=== PATIENT | female | born 1955 | race Caucasian/White ===

== ENCOUNTER 2016-02-18 11:57 | Emergency (ER) | payer OTHER ==
[~2016-02-18] VITALS: Ht 154.9 cm; Wt 72.6 kg
[~2016-02-18 11:57] MED LIST: ALDACTONE25 MG PO; ASPI-86 PO; ATEN25TA; ATOR40TA70 PO; ATRV10T; B-12; CANA100T PO; CARV3.12T PO; CHELATED ZINC PO; CITA20TA4 PO; CLOP75TA; D50KC PO; ESCI20TA2; LIOT5TAB3 PO; LISI10TA2 PO; LOVA10TA; LOVA20TA2; LRT10T PO; MAG PO; METF500T8 PO; OMEP20CA12 PO; OMEP20CA6; POTA10CA16; POTA20TA15 PO; RNT150T; TORS20TA2 PO; TPR25T PO
--- OUTSIDE RECORDS SUMMARY | 2016-02-18 12:02 | XMS REPORT | Continuity of Care Document ---
Author Author [facility] Organization [facility] Address Unknown Phone Unavailable Care Team Providers Care Blood Donor Recruiter Name Role Phone Godwin Rojo III PCP [phone] Source Comments Some departments are not documenting in the electronic medical record. If you do not see the information that you expected, contact Release of Information in the Health Information Management department at [phone] for further assistance in locating additional records.[facility] Active Allergies and Adverse Reactions Allergen Noted Date Severity Reactions Comments Erythromycin 08/12/2011 HIVES Current Medications Prescription Sig. Disp. Refills Start End Date Status Date potassium chloride SR Take 10 mEq by mouth Active (K-DUR) 10 mEq tablet daily. torsemide(+) (DEMADEX) 20 Take 20 mg by mouth Active mg tablet daily. citalopram (CELEXA) 20 mg Take 20 mg by mouth Active tablet daily. loratadine (CLARITIN) 10 Take 10 mg by mouth Active mg tablet daily. liothyronine (CYTOMEL) 5 Take 5 mcg by mouth twice Active mcg Tab daily. OMEPRAZOLE PO Take by mouth daily. Active aspirin EC 81 mg tablet Take 81 mg by mouth Active daily. magnesium oxide (MAG-OX) Take 400 mg by mouth Active 400 mg tablet daily. metFORMIN-XR(+) Take 500 mg by mouth Active (GLUCOPHAGE XR) 500 mg daily with dinner. tablet carvedilol (COREG) 3.125 Take 3.125 mg by mouth Active mg tablet twice daily with meals. topiramate (TOPAMAX) 25 Take 25 mg by mouth Active mg tablet daily. ergocalciferol (VITAMIN Take 50,000 Units by Active D-2) 50,000 unit capsule mouth every 7 days. CYANOCOBALAMIN (VITAMIN Inject to area(s) as Active B-12) (VITAMIN B-12 IJ) directed every 30 days. CANAGLIFLOZIN (INVOKANA Take by mouth daily. Active PO) atorvastatin (LIPITOR) 40 Take 40 mg by mouth Active mg tablet daily. metaxalone(+) (SKELAXIN) Take 800 mg by mouth Active 800 mg tablet three times daily. amitriptyline (ELAVIL) 10 Take 10 mg by mouth at Active mg tablet bedtime daily. buPROPion SR(+) Take 150 mg by mouth Active (WELLBUTRIN-SR) 150 mg twice daily. tablet Active Problems Problem Noted Date Meningioma (HCC) 12/11/2011 Overview: 08/27/2011: stereotactic craniotomy for resection of left parietal meningioma. WHO grade I S/P craniotomy 12/11/2011 Seizure (HCC) 12/11/2011 Brain lesion 08/27/2011 Hypertension 08/27/2011 Hyperlipidemia 08/27/2011 CAD (coronary artery disease) 08/27/2011 Hypothyroidism 08/27/2011 Social History Tobacco Use Types Packs/Day Years Used Date Never Smoker Alcohol Use Drinks/Week oz/Week Comments Yes 0.5 Standard 0.0 drinks or equivalent Last Filed Vital Signs Vital Sign Reading Time Taken Blood Pressure 133/84 09/05/2015 10:29 AM CDT Pulse 98 09/05/2015 10:29 AM CDT Temperature 36.9 C (98.4 F) 12/10/2011 11:49 AM CDT Respiratory Rate 20 09/11/2011 6:47 PM CDT Height 1.549 m (5' 1") 09/05/2015 10:29 AM CDT Weight 69.854 kg (154 lb) 09/05/2015 10:29 AM CDT Body Mass Index 29.11 09/05/2015 10:29 AM CDT Oxygen Saturation 96% 08/29/2011 4:00 PM CDT Plan of Care Health Maintenance Due Date Last Done Comments Hepatitis C Screening 1955 Physical (Comprehensive) 09/08/1962 Exam Pertussis Vaccine 09/08/1966 Tetanus Vaccine 09/08/1972 Dilated Eye Exam 09/08/1973 Foot Exam 09/08/1973 Hba1c 09/08/1973 Microalbumin 09/08/1973 Pneumonia Vaccine (Dm) 09/08/1973 Cervical Cancer Screening 09/08/1976 Breast Cancer Screening 1995 Colorectal Cancer 09/08/2005 Screening Influenza Vaccine 10/18/2015 Results from Last 3 Months Not on file
[2016-02-18] MEDS ORDERED: BUPR150T9 PO (12:16)
[2016-02-18] MEDS ORDERED: META800T PO (12:16)
--- NOTE | 2016-02-18 12:28 | ED General ---
General Chief Complaint: Allergic Reaction Stated Complaint: UTI, REACTION TO ANITBIOTIC Nursing Triage Note: STARTED MACROBID ON THURSDAY FOR UTI. STATES SINCE THEN SHE BEGAN FEELING WORSE WITH VOMITING AND REFLUX WITH MEDICATION USE. STATES SHE VOMITED X1 TODAY. Nursing Sepsis Screen: No Definite Risk Source of Information: Patient Exam Limitations: No Limitations History of Present Illness Time Seen by Provider: 12:28 Initial Comments 60 yo female patient presents to the ED with c/o possible reaction to Macrobid. Patient was started on Macrobid on Thursday for UTI. Patient reports n/v and reflux with the medication. Symptoms have progressively gotten worse with each dose of the macrobid. She reportedly contacted the office and was told the medication would make her feel worse before better. Patient reports chronic BAUTISTA since brain surgery. Timing/Duration: 5-6 Days, Getting Worse Modifying Factors: worse with Medication (worse with antibiotic) Allergies and Home Medications Allergies Coded Allergies: erythromycin base (Verified Allergy, Unknown, 03/26/07) Home Medications 1 TAB PO DAILY (Reported) Aspirin 81 Mg Tab.chew 81 MG PO DAILY (Reported) Atorvastatin Calcium 40 Mg Tablet 40 MG PO DAILY (Reported) Bupropion HCl 150 Mg Tablet.er 150 MG PO (Reported) Carvedilol 3.125 Mg Tablet 3.125 MG PO BID (Reported) Citalopram Hydrobromide 20 Mg Tablet 20 MG PO DAILY (Reported) Ergocalciferol 50,000 Units Cap 50,000 UNITS PO WEEKLY ON THURSDAY (Reported) Famotidine 20 Mg Tablet #20 20 MG PO BID Prescribed by: SADI ALVAREZ on 02/18/16 1434 Liothyronine Sodium 5 Mcg Tablet 10 MCG PO BID (Reported) Loratadine 10 Mg Tab 10 MG PO DAILY (Reported) Metaxalone 800 Mg Tablet 800 MG PO (Reported) Metformin Hcl 500 Mg Tab.sr.24h 500 MG PO DAILY WITH MEAL (Reported) Omeprazole 20 Mg Capsule.dr 20 MG PO DAILY (Reported) Ondansetron 8 Mg Tab.rapdis #10 8 MG PO Q6H PRN PRN NAUSEA/VOMITING Prescribed by: SADI ALVAREZ on 02/18/16 1432 Potassium Chloride 20 Meq Tab.prt.sr 20 MEQ PO DAILY (Reported) Potassium Chloride 10 Meq Tablet.er #4 10 MEQ PO BID Prescribed by: SADI ALVAREZ on 02/18/16 1438 Sucralfate 1 Gm/10 Ml Oral.susp #560 1 GM PO ACHS Prescribed by: SADI ALVAREZ on 02/18/16 1615 Topiramate 25 Mg Tab 25 MG PO EVENING (Reported) Torsemide 20 Mg Tablet 20 MG PO DAILY (Reported) Constitutional: No chills, No diaphoresis, No fever, No malaise, other ( fatigue) EENTM: nose congestionNo ear pain, No throat pain, No throat swelling Respiratory: coughNo dyspnea on exertion, No orthopnea, phlegmNo short of breath Cardiovascular: No chest pain, No edema, No palpitations, No syncope Gastrointestinal: see HPI abdominal pain (epigastric)No constipation, No diarrhea, No dysphagia, No hematemesis, heartburn loss of appetiteNo melena, nausea vomiting Genitourinary: no symptoms reported Musculoskeletal: no symptoms reported Skin: no symptoms reported Psychiatric/Neurological: Headache ((chronic)) Pre-Existing Deficit (chronic headache since brain surgery.) All Other Systems Reviewed Negative Unless Noted: Yes (Negative excepted noted.) Past Nltzezu-Elbzkm-Eywdgb Hx Patient Social History Alcohol Use: Denies Use Recreational Drug Use: No Smoking Status: Never a Smoker Recent Foreign Travel: No Contact w/Someone Who Travel: No Recent Infectious Disease Expo: No Recent Hopitalizations: Yes (3 YEARS AGO) Physical Abuse Screen: No Sexual Abuse: No Immunizations Up To Date Date of Influenza Vaccine: Nov 15, 2015 Surgeries HX Surgeries: Yes (KNEE SURGERY, CRANIOTOMY ) Surgeries: Breast, Coronary Stent, Gallbladder, Hysterectomy, Orthopedic Respiratory Hx Respiratory Disorders: No Cardiovascular Hx Cardiac Disorders: No Neurological Hx Neurological Disorders: Yes Neurological Disorders: Brain Tumor, Headaches /Migraines (chronic headache since brain surgery.) Reproductive System Hx Reproductive Disorders: No Sexually Transmitted Disease: No Genitourinary Hx Genitourinary Disorders: No Gastrointestinal Hx Gastrointestinal Disorders: No Musculoskeletal Hx Musculoskeletal Disorders: No Endocrine Hx Endocrine Disorders: Yes Endocrine Disorders: Hypothyroidsim, Diabetes, Non-Insulin dep HEENT HX ENT Disorders: No Cancer Cancer: Skin Psychosocial Hx Psychiatric Problems: Yes Blood Transfusions Hx Blood Disorders: No Reviewed Nursing Assessment Reviewed/Agree w Nursing PMH: Yes Family Medical History Significant Family History: No Pertinent Family Hx Physical Exam Vital Signs Capillary Refill : Less Than 3 Seconds General Appearance: No Apparent Distress WD/WN HEENT: PERRL/EOMI Pharynx Normal Neck: Normal Inspection Supple Respiratory: Lungs Clear Normal Breath Sounds No Respiratory Distress Cardiovascular: No Edema No Murmur Normal Peripheral Pulses Tachycardia Gastrointestinal: Normal Bowel Sounds No Organomegaly SoftNo Distended, Guarding (epigastric)No Rebound, Tenderness (epigastric) Extremity: Normal Capillary Refill No Pedal Edema Neurologic/Psychiatric: Alert Oriented x3 Normal Mood/Affect Skin: Normal Color Warm/Dry Progress/Results/Core Measures Results/Orders Lab Results My Orders Medications Given in ED Vital Signs/I&O Blood Pressure Mean: 111 ECG Initial ECG Impression Date: Feb 18, 2016 Initial ECG Impression Time: 16:40 Initial ECG Rate: 72 Initial ECG Rhythm: Normal Sinus Initial ECG Intervals: Normal Initial ECG Impression: Normal Initial ECG Comparisson: Unchanged Comment Sinus rhythm. No STEMI. EKG reviewed and discussed with Dr. Armstrong. Diagnostic Imaging Diagonstic Imaging: Xray Plain Films/CT/US/NM/MRI: chest Comments FINDINGS: Upright portable view of the chest is obtained. Heart size is normal. The pulmonary vessels appear unremarkable. There is no pneumothorax, mediastinal widening, or pleural fluid demonstrated. The lungs are clear. IMPRESSION: No radiographic evidence of an acute cardiopulmonary process. No significant interval change from the prior study. Dictated on workstation # [id number] Reviewed: Reviewed by Me (radiology report reviewed by me) Departure Communication Progress Notes Patient seen and evaluated. Given 1 L normal saline, morphine, Norflex, and Zofran for symptoms. Patient reported little improvement with medications and was given a GI cocktail. Reported improvement with the GI cocktail. Previous records reviewed showing patient had a stress test on 01/30/[address] Chun which was negative. 04/26/14 patient underwent heart catheterization with stable coronary stent in the LAD with 30-40 percent stenosis beyond the stent. No other obstructive disease noted. 1605 now reporting "chest pain" which radiates across the bilateral lower ribs into the back. Reports symptoms began approximately 10 minutes after morphine was given. proceed with EKG, CXR, and troponin added to labs. 1710 all laboratory findings, diagnostic study findings, and plan for discharge to home discussed with the patient. Patient instructed to follow-up with Dr. Rojo in the next 1-2 days as an outpatient for a recheck and further evaluation. Patient case discussed with Dr. Armstrong, he agrees with the plan of care. Impression Impression: Primary Impression: Nausea & vomiting Qualified Code: R11.2 - Nausea with vomiting, unspecified Additional Impressions: Viral upper respiratory illness Gastritis Qualified Code: K29.00 - Acute gastritis without bleeding Hypokalemia, gastrointestinal losses Disposition: HOME, SELF-CARE Condition: Improved Departure-Patient Inst. Decision time for Depature: 17:10 Referrals: DAVIDA ROJO DO (PCP/Family) Primary Care Physician Patient Instructions: Nausea and Vomiting, Adult (DC), Ulcer and Gastritis Diet , Viral Upper Respiratory Infection, Adult (DC) Add. Discharge Instructions: All discharge instructions reviewed with patient and/or family. Voiced understanding. Medications as instructed. Tylenol Extra Strength over-the- counter as directed for pain or headache. Omeprazole 40 mg by mouth daily over- the-counter. Do not eat within 2 hours of lying down. No spicy foods, fatty foods, carbonated beverages, caffeinated beverages, Motrin, Aleve, or aspirin. Drink plenty of fluids. Warm salt water gargles as needed for throat pain. Follow-up with Dr. Rojo as an outpatient in the next 1-2 days for recheck. Call for appointment time. Return to the emergency department for worsened symptoms or any other concerns. Scripts Sucralfate (Carafate)1 Gm/10 Ml Oral.susp1 Gm PO ACHS #560 ML Ref 0 Prov:SADI ALVAREZ 02/18/16 Potassium Chloride 10 Meq Tablet.er10 Meq PO BID #4 TAB Ref 0 Prov:SADI ALVAREZ 02/18/16 Famotidine (Pepcid)20 Mg Xwauhh47 Mg PO BID #20 TAB Ref 0 Prov:SADI ALVAREZ 02/18/16 Ondansetron (Ondansetron Odt)8 Mg Tab.rapdis8 Mg PO Q6H PRN NAUSEA/VOMITING #10 TAB Ref 0 Prov:SADI ALVAREZ 02/18/16 Work/School Note: Work Release Form Date Seen in the Emergency Department: Feb 18, 2016 Return to Work: Feb 20, 2016 Restrictions: No Restrictions SADI ALVAREZ Feb 18, 2016 12:28 Red Cell Distribution Width 12.8 10.0-14.5 % White Blood Count 9.4 4.3-11.0 10^3/uL Alanine Aminotransferase (ALT/SGPT) 14 0-55 U/L Albumin 4.2 3.2-4.5 G/DL Alkaline Phosphatase 94 40-136 U/L Anion Gap 12 5-14 MMOL/L Aspartate Amino Transf (AST/SGOT) 15 5-34 U/L BUN/Creatinine Ratio 19 Blood Urea Nitrogen 16 7-18 MG/DL Calcium Level 9.2 8.5-10.1 MG/DL Carbon Dioxide Level 25 21-32 MMOL/L Chloride Level 108 H 98-107 MMOL/L Creatinine 0.84 0.60-1.30 MG/DL Estimat Glomerular Filtration Rate > 60 Glucose Level 134 H 70-105 MG/DL Lipase 33 8-78 U/L Potassium Level 3.3 L 3.6-5.0 MMOL/L Sodium Level 145 135-145 MMOL/L Total Bilirubin 0.5 0.1-1.0 MG/DL Total Protein 7.6 6.4-8.2 G/DL Troponin I < 0.30 <0.30 NG/ML Group A Streptococcus Screen NEGATIVE NEGATIVE [place]-SADI ALVAREZ Cbc With Automated Diff (02/18/16 13:05) Comprehensive Metabolic Panel (02/18/16 13:05) Lipase (02/18/16 13:05) Monotest (02/18/16 13:05) Rapid Strep A Screen (02/18/16 13:05) Ua Culture If Indicated (02/18/16 13:05) Saline Lock/Iv-Start (02/18/16 13:05) Ketorolac Injection (Toradol Injection) (02/18/16 13:05) Ondansetron Injection (Zofran Injectio (02/18/16 13:15) Ns Iv 1000 Ml (Sodium Chloride 0.9%) (02/18/16 13:05) Famotidine Injection (Pepcid Injection) (02/18/16 13:05) Ondansetron Injection (Zofran Injectio (02/18/16 15:30) Morphine Injection (Morphine Injection (02/18/16 15:17) Orphenadrine Injection (Norflex Injectio (02/18/16 15:17) Lidocaine 2% Viscous 15 Ml (Xylocaine Vi (02/18/16 16:15) Antacid Suspension (Mylanta Suspension (02/18/16 16:15) Ekg Tracing (02/18/16 16:13) Troponin I (02/18/16 16:13) Chest 1 View, Ap/Pa Only (02/18/16 16:13) Medications Given in ED Current Medications Medications Dose Ordered Sig/Leonor Route Start Time Stop Time Status Last Admin Dose Admin Al Hydrox/Mg Hydrox/Simethicone 30 ml ONCE ONCE PO 02/18/16 16:15 02/18/16 16:16 DC 02/18/16 16:26 30 ML Lidocaine HCl 15 ml ONCE ONCE PO 02/18/16 16:15 02/18/16 16:16 DC 02/18/16 16:27 15 ML Ondansetron HCl 4 mg ONCE ONCE IVP 02/18/16 15:30 02/18/16 15:31 DC 02/18/16 15:27 4 MG Ondansetron HCl 4 mg 4 mg ONCE ONCE IVP 02/18/16 13:15 02/18/16 13:16 DC 02/18/16 14:20 4 MG Sodium Chloride 1,000 ml @ 0 mls/hr Q0M ONCE IV 02/18/16 13:05 02/18/16 13:08 DC 02/18/16 14:20 1,000 MLS/HR Vital Signs/I&O Vital Sign - Last 12Hours 02/18/16 12:03 Temp 99.6 Pulse 106 Resp 18 B/P 126/103 Pulse Ox 98 Blood Pressure Mean: 111 Diagnostic Imaging Diagonstic Imaging: Xray Plain Films/CT/US/NM/MRI: chest Comments FINDINGS: Upright portable view of the chest is obtained. Heart size is normal. The pulmonary vessels appear unremarkable. There is no pneumothorax, mediastinal widening, or pleural fluid demonstrated. The lungs are clear. IMPRESSION: No radiographic evidence of an acute cardiopulmonary process. No significant interval change from the prior study. Dictated on workstation # [id number] Reviewed: Reviewed by Me (radiology report reviewed by me) Departure Communication Progress Notes 1605 now reporting "chest pain" which radiates across the bilateral lower ribs into the back. Reports symptoms began approximately 10 minutes after morphine was given. Impression Impression: Primary Impression: Nausea & vomiting Qualified Code: R11.2 - Nausea with vomiting, unspecified Additional Impressions: Viral upper respiratory illness Gastritis Qualified Code: K29.00 - Acute gastritis without bleeding Hypokalemia, gastrointestinal losses Disposition: 01 HOME, SELF-CARE Condition: Improved Departure-Patient Inst. Decision time for Depature: 14:31 Referrals: DAVIDA ROJO DO (PCP/Family) Primary Care Physician Patient Instructions: Nausea and Vomiting, Adult (DC), Ulcer and Gastritis Diet , Viral Upper Respiratory Infection, Adult (DC) Add. Discharge Instructions: All discharge instructions reviewed with patient and/or family. Voiced understanding. Medications as instructed. Tylenol Extra Strength over-the- counter as directed for pain or headache. Omeprazole 40 mg by mouth daily over- the-counter. Do not eat within 2 hours of lying down. No spicy foods, fatty foods, carbonated beverages, caffeinated beverages, Motrin, Aleve, or aspirin. Drink plenty of fluids. Warm salt water gargles as needed for throat pain. Follow-up with Dr. Rojo as an outpatient in the next 1-2 days for recheck. Call for appointment time. Return to the emergency department for worsened symptoms or any other concerns. Scripts Sucralfate (Carafate)1 Gm/10 Ml Oral.susp1 Gm PO ACHS #560 ML Ref 0 Prov:SADI ALVAREZ 02/18/16 Potassium Chloride 10 Meq Tablet.er10 Meq PO BID #4 TAB Ref 0 Prov:SADI ALVAREZ 02/18/16 Famotidine (Pepcid)20 Mg Pwwskr68 Mg PO BID #20 TAB Ref 0 Prov:SADI ALVAREZ 02/18/16 Ondansetron (Ondansetron Odt)8 Mg Tab.rapdis8 Mg PO Q6H PRN NAUSEA/VOMITING #10 TAB Ref 0 Prov:SADI ALVAREZ 02/18/16 Work/School Note: Work Release Form Date Seen in the Emergency Department: Feb 18, 2016 Return to Work: Feb 20, 2016 Restrictions: No Restrictions SADI ALVAREZ Feb 18, 2016 12:28
[2016-02-18] MEDS ORDERED: NS IV 1000 ML 1,000 ML IV ONE (13:05)
[2016-02-18] MEDS ORDERED: KETOROLAC 30 MG/ML VIAL IVP STA (13:05)
[2016-02-18] MEDS ORDERED: FAMOTIDINE 20MG/2ML IV (PEPCID) IV STA (13:05)
[2016-02-18] MEDS ORDERED: ONDANSETRON 4 MG/2 ML (SDV) Z0FRAN IVP ONE ×2 (13:15→15:30)
[2016-02-18 13:34] LABS: BILIRUBIN,URINE NEGATIVE (NEGATIVE); KETONES,URINE NEGATIVE (NEGATIVE); LEUKOCYTE ESTERASE ,URINE NEGATIVE (NEGATIVE); NITRITE,URINE NEGATIVE (NEGATIVE); PH,URINE 5 (5-9); PROTEIN,URINE NEGATIVE (NEGATIVE); UROBILINOGEN,URINE NORMAL (NORMAL)
[2016-02-18 13:36] LABS: BASOPHILS % (AUTO) 0 % (0-10); EOSINOPHILS # (AUTO) 0.1 10^3/uL (0.0-0.3); EOSINOPHILS % (AUTO) 1 % (0-10); LYMPHOCYTES # (AUTO) 1.7 X 10^3 (1.0-4.0); LYMPHOCYTES % (AUTO) 18 % (12-44); MEAN CORPUSCULAR HEMOGLOBIN 29 PG (25-34); MEAN CORPUSCULAR HGB CONC 34 G/DL (32-36); MEAN CORPUSCULAR VOLUME 87 FL (80-99); MEAN PLATELET VOLUME 10.4 FL (7.4-10.4); MONOCYTES # (AUTO) 0.7 X 10^3 (0.0-1.0); MONOCYTES % (AUTO) 7 % (0-12); NEUTROPHILS # (AUTO) 6.9 X 10^3 (1.8-7.8); NEUTROPHILS % (AUTO) 73 % (42-75); PLATELET COUNT 360 10^3/uL (130-400); RED BLOOD COUNT 4.97 10^6/uL (4.35-5.85); RED CELL DISTRIBUTION WIDTH 12.8 % (10.0-14.5); WHITE BLOOD COUNT 9.4 10^3/uL (4.3-11.0)
[2016-02-18 14:19] LABS: ALANINE AMINOTRANSFERASE 14 U/L (0-55); ALBUMIN 4.2 G/DL (3.2-4.5); ANION GAP 12 MMOL/L (5-14); ASPARTATE AMINO TRANSFERASE 15 U/L (5-34); BILIRUBIN,TOTAL 0.5 MG/DL (0.1-1.0); BLOOD UREA NITROGEN 16 MG/DL (7-18); BUN/CREATININE RATIO 19; CALCIUM 9.2 MG/DL (8.5-10.1); CARBON DIOXIDE 25 MMOL/L (21-32); CHLORIDE 108 MMOL/L (98-107); CREATININE SERUM 0.84 MG/DL (0.60-1.30); GFR ESTIMATED > 60; GLUCOSE 134 MG/DL (70-105); LIPASE 33 U/L (8-78); POTASSIUM 3.3 MMOL/L (3.6-5.0); SODIUM 145 MMOL/L (135-145); TOTAL PROTEIN 7.6 G/DL (6.4-8.2)
[2016-02-18] MEDS ORDERED: ONDA8TAB13 PO (14:32)
[2016-02-18] MEDS ORDERED: FAMO-119 PO (14:34)
[2016-02-18] MEDS ORDERED: POTA10TA10 PO (14:38)
[2016-02-18] MEDS ORDERED: ORPHENADRINE 60 MG/2 ML (NORFLEX) AMP IV STA (15:17)
[2016-02-18] MEDS ORDERED: morphine INJ 10 MG/ML 1ML (SYR OR VIAL) IVP STA (15:17)
[2016-02-18] MEDS ORDERED: ANTACID SUSP 30 ML UDC (MYLANTA) PO ONE (16:15)
[2016-02-18] MEDS ORDERED: SUCR1ORA5 PO (16:15)
[2016-02-18] MEDS ORDERED: LIDOCAINE 2% VISCOUS 15 ML UDC PO ONE (16:15)
--- NOTE | 2016-02-18 17:05 | Diagnostic Imaging Report ---
INDICATION: Chest pain. COMPARISON: 04/26/2014. FINDINGS: Upright portable view of the chest is obtained. Heart size is normal. The pulmonary vessels appear unremarkable. There is no pneumothorax, mediastinal widening, or pleural fluid demonstrated. The lungs are clear. IMPRESSION: No radiographic evidence of an acute cardiopulmonary process. No significant interval change from the prior study. Dictated by: Dictated on workstation # [id number]
[2016-02-18 17:19] VITALS: BP 137/85
== END 2016-02-18 17:19 | disposition home or self-care (01) ==
LOC: EDUNIT# 11:57 → ER 11:59
DX: R11.2 Nausea with vomiting, unspecified (principal); J06.9 Acute upper respiratory infection, unspecified; E03.9 Hypothyroidism, unspecified; E87.6 Hypokalemia; I10 Essential (primary) hypertension; E11.9 Type 2 diabetes mellitus without complications; Z79.84 Long term (current) use of oral hypoglycemic drugs; Z79.82 Long term (current) use of aspirin; Z79.899 Other long term (current) drug therapy
CPT/HCPCS: 36415; 71010; 80053; 81000; 83690; 84484; 85025; 86308; 87430; 93005; 96374; 96375; 96376

== ENCOUNTER → 2016-04-29 | Outpatient (CLI) | payer OTHER ==
[~2016-04-29] MED LIST changes: +BUPIVACAINE 0.5% 30 ML (SENSORCAINE) VIAL ONE; +BUPR150T9 PO; +CHOL500049 PO; +FAMO-119 PO; +LIDOCAINE 1% INJ 20 ML (XYLOCAINE) VIAL ONE; +META800T PO; +ONDA8TAB13 PO; +POTA10TA10 PO; +SUCR1ORA5 PO
--- OUTSIDE RECORDS SUMMARY | 2016-04-29 08:31 | XMS REPORT | Continuity of Care Document ---
Author Author [facility] Organization [facility] Address Unknown Phone Unavailable Care Team Providers Care Athletic Equipment Custodian Name Role Phone Godwin Rojo III PCP [phone] Source Comments Some departments are not documenting in the electronic medical record. If you do not see the information that you expected, contact Release of Information in the Health Information Management department at [phone] for further assistance in locating additional records.[facility] Active Allergies and Adverse Reactions Allergen [...]
--- NOTE | 2016-04-29 20:24 | Diagnostic Imaging Report ---
Bilateral diagnostic mammogram. INDICATION: Bilateral nodules. Right breast painful superficial nodule. The current study was also evaluated with a Computer Aided Detection (CAD) system. COMPARISON: 08/15/11. FINDINGS: The breasts are composed of scattered fibroglandular densities. Benign-appearing calcifications are seen. No mass or suspicious insufficiency. There is mild architectural distortion in the left breast that would correlate with provided history of prior left breast surgical biopsy. Allowing for technique and positional differences, no suspicious change is seen. IMPRESSION: No significant change. Ultrasound is pending. ACR BI-RADS 0. Dictated by: Dictated on workstation # [id number]
--- NOTE | 2016-04-29 21:10 | Diagnostic Imaging Report ---
EXAM: Bilateral breast ultrasound. INDICATION: Tender lump in the right breast and bilateral lumpiness in the breast tissue. The four-quadrants and retroareolar regions of each breast was scanned. FINDINGS: The area of tender lump at 11 o'clock, 2 cm from the nipple on the right side demonstrates underlying lesion. The left breast demonstrates a calcification that appears to be benign dystrophic type, probably related to prior surgical biopsy at 11:00 o'clock, 8 cm in the left breast. No suspicious lesion seen otherwise. IMPRESSION: No suspicious abnormality. Clinical followup of the palpable lump recommended. BI-RADS 2. ACR BI-RADS Category 2: Benign findings. Result letter will be mailed to the patient. Note: At least 10% of breast cancer is not imaged by mammography. Dictated by: Dictated on workstation # [id number]
== END ==
LOC: RAD 08:26
PROVIDERS: ATTEND Nurse Practitioner Family
DX: N60.01 Solitary cyst of right breast (principal); N60.02 Solitary cyst of left breast
CPT/HCPCS: 77066

== ENCOUNTER 2016-06-23 08:57 | Outpatient (CLI) | payer OTHER ==
[~2016-06-23] VITALS: Ht 154.9 cm; Wt 73.5 kg
[~2016-06-23 08:57] MED LIST changes: -BUPIVACAINE 0.5% 30 ML (SENSORCAINE) VIAL ONE; -CHOL500049 PO; -LIDOCAINE 1% INJ 20 ML (XYLOCAINE) VIAL ONE
[2016-06-23] MEDS ORDERED: CANA100T PO (09:14)
[2016-06-23] MEDS ORDERED: CHOL500049 PO (09:14)
[2016-06-23 09:20] VITALS: BP 135/86
== END 2016-06-23 09:37 | disposition home or self-care (01) ==
LOC: PREOP 08:57
PROVIDERS: ATTEND Surgery
DX: Z01.818 Encounter for other preprocedural examination (principal); Z11.2 Encounter for screening for other bacterial diseases; L98.9 Disorder of the skin and subcutaneous tissue, unspecified
CPT/HCPCS: 87081

== ENCOUNTER 2016-06-26 07:18 | Day surgery (SDC) | payer OTHER ==
[~2016-06-26] VITALS: Ht 154.9 cm; Wt 73.5 kg
[~2016-06-26 07:18] MED LIST changes: +CHOL500049 PO
[2016-06-26] MEDS ORDERED: LACTATED RINGERS 1,000 ML IV PRN (07:37)
[2016-06-26] MEDS ORDERED: SEVOFLURANE (ULTANE) 15 ML INHAL SOLN ONE ×3 (07:41→09:49)
[2016-06-26] MEDS ORDERED: DEXAMETHASONE PF 10 MG/ML (DECADRON) VIAL ONE (07:41)
[2016-06-26] MEDS ORDERED: proPOfol 200 MG/20 ML (DIPRIVAN) VIAL IV ONE (07:41)
[2016-06-26] MEDS ORDERED: MIDAZOLAM 2 MG/2 ML (VERSED) VIAL ONE (07:41)
[2016-06-26] MEDS ORDERED: LACTATED RINGERS 1,000 ML IV ONE ×2 (07:41→09:30)
[2016-06-26] MEDS ORDERED: ONDANSETRON 4 MG/2 ML (SDV) Z0FRAN ONE (07:41)
[2016-06-26] MEDS ORDERED: LIDOCAINE PF 2% 10 ML (XYLOCAINE) AMP ONE (07:41)
[2016-06-26] MEDS ORDERED: fentaNYL INJECTION 100 MCG/2 ML AMP ONE (07:41)
[2016-06-26] MEDS ORDERED: MIDAZOLAM 2 MG/2 ML (VERSED) VIAL IV ONE (07:45)
[2016-06-26] MEDS ORDERED: ceFAZolin 1 GM/NS 50 ML IVPB IV ONE ×2 (07:45)
[2016-06-26] MEDS ORDERED: FAMOTIDINE 20MG/2ML IV (PEPCID) IV ONE (07:45)
--- NOTE | 2016-06-26 08:24 | Progress Note-Pre Operative ---
Pre-Operative Progress Note H&P Reviewed The H&P was reviewed, patient examined and no changes noted. Date H&P Reviewed: June 26, 2016 Time H&P Reviewed: 08:24 Pre-Operative Diagnosis: multiple skin lesions ISABELL ROSA DO June 26, 2016 8:24 am
[2016-06-26 08:31] VITALS: BP 149/92
--- NOTE | 2016-06-26 10:06 | Progress Note-Post Operative ---
Post-Operative Progess Note Surgeon (s)/Pmp (s) Surgeon ISABELL ROSA DO Pmp: Glynn nwagwu Pre-Operative Diagnosis multiple skin lesions Post-Operative Diagnosis same Procedure & Operative Findings Date of Procedure 06/26/16 Procedure Preformed/Findings excision of skin lesions x 10 see dictation for full description Anesthesia Type general Estimated Blood Loss Estimated blood loss (mL): minimal Specimens/Packing Specimens Removed skin lesions see full dictation Packing: none ISABELL ROSA DO June 26, 2016 10:06 am
[2016-06-26] MEDS ORDERED: ONDANSETRON 4 MG/2 ML (SDV) Z0FRAN IVP PRN (10:15)
[2016-06-26] MEDS ORDERED: morphine INJ 10 MG/ML 1ML (SYR OR VIAL) IVP PRN (10:15)
--- NOTE | 2016-06-26 10:41 | OPERATIVE REPORT ---
DATE OF SERVICE: 06/26/2016 PREOPERATIVE DIAGNOSIS: Skin lesions. POSTOPERATIVE DIAGNOSIS: Skin lesions. PROCEDURE: Excision of skin lesions: 1. Right anterior thigh 1.5 x 0.6 cm. 2. Right hip 2.2 x 1.1 cm. 3. Left breast 0.8 x 1.5 cm. 4. Right axilla skin tag. 5. Right neck 1.5 x 1.0 cm. 6. Left axilla skin tag. 7. Right arm 5 mm. 8. Left arm 2.4 x 1.5 cm. 9. Right lower back 1.8 x 1.0 cm. 10. Left lower back 2.0 x 1.0 cm. SURGEON: Isabell Markham DO ANESTHESIA: General. ESTIMATED BLOOD LOSS: Minimal. COMPLICATIONS: None. INDICATIONS: The patient is a 60-year-old female with multiple skin lesions that have changed and is concerned. She has history of skin cancer. She understands risks and benefits of procedure and wished to proceed with procedure. Consent was signed and in the chart. PROCEDURE: The patient was taken to the operating suite, she was prepped and draped in sterile fashion on the lesions. Local anesthetic of 0.5% Marcaine and 1% lidocaine was infiltrated in the skin lesions. A #15 blade scalpel was used to make an elliptical incision around the skin lesions and taking skin and subcutaneous tissue. Skin was then closed using nylon suture. The area was then washed and dried, sterile bandages applied. The skin lesions #1, 2, 3, 5, 8, 9 and 10 were all performed in the same fashion. The skin tags #4 and #6. The lesion was grasped and elevated. A 15 blade scalpel was used to amputate it at the base and then cautery was used to fulgurate. Lesion #7 the area was prepped and draped. The lesion was excised completely with a 5 mm punch, which was taken down through the skin and subcutaneous tissue, grasped, elevated and scissors were used to amputate the subcutaneous tissue. Nylon suture was then used in a simple interrupted fashion to close. The area was washed and dried, sterile bandages were applied. The patient tolerated the procedure well without any complications. She was taken to the recovery room in stable condition. Job ID: [id number] DocumentID: [id number] Dictated Date: 06/26/2016 10:14:36 Film And Video Editor Date: 06/26/2016 10:40:49 Dictated By: ISABELL MARKHAM DO
[2016-06-26 10:55] VITALS: BP 140/102
[2016-06-26 11:25] VITALS: BP 169/93
[2016-06-26 11:55] VITALS: BP 130/70
--- NOTE | 2016-06-26 11:58 | Discharge Inst-Simple/Standard ---
Discharge Inst-Standard Patient Instructions/Follow Up Plan of Care/Instructions/FU: Follow up in clinic in 10 days for suture removal. Keep the wounds clean and dry. Hold ASpirin for 3 days. Activity as Tolerated: No Discharge Diet: No Restrictions Other Inst to Patient Follow up Appt: Make appointment for 10 days for suture removal Instructions: No lifting greater than 10 pounds. No strenuous activity. May shower in 24 hours, no tub bath or soaking. Use incentive spirometer at home as directed. No Smoking Skin/Wound Care: May remove bandages. Symptoms to Report: Appetite Changes, Extremity Discoloration, Numbness/Tingling, Swelling Increased , Bleeding Excessive, Eyesight Changes, Pain Increased, Urine Color Change, Constipation(Persistent), Fever over 101 degree F, Pain/Pressure in chest, Urinating Difficulty, Cough Up/Vomit Blood, Heart Beat Irreg/Pounding, Pain/ Pressure in jaw, Vaginal Bleeding Increase, Cramps in feet or legs, Lightheadedness, Pain/Pressure in shoulder, Diarrhea(Persistent), Memory Changes Suddenly, Questions/Concerns, Weight gain consecutive days, Dizziness/ Fainting, Nausea/Vomiting, Shortness of Breath, Weight gain over 2 pounds If questions or concerns contact your physician Or seek help at emergency department. LANDEN SCHWARTZ APRN June 26, 2016 11:58
[2016-06-26 12:15] VITALS: BP 130/70
== END 2016-06-26 12:15 | disposition home or self-care (01) ==
LOC: SDC 07:18
PROVIDERS: ATTEND Surgery
DX: C44.712 Basal cell carcinoma of skin of right lower limb, including hip (principal); C44.41 Basal cell carcinoma of skin of scalp and neck; C44.612 Basal cell carcinoma of skin of right upper limb, including shoulder; C44.619 Basal cell carcinoma of skin of left upper limb, including shoulder; D23.5 Other benign neoplasm of skin of trunk; L82.1 Other seborrheic keratosis; L91.8 Other hypertrophic disorders of the skin; I25.10 Atherosclerotic heart disease of native coronary artery without angina pectoris; E11.9 Type 2 diabetes mellitus without complications; I10 Essential (primary) hypertension; E78.5 Hyperlipidemia, unspecified; G47.33 Obstructive sleep apnea (adult) (pediatric); G40.909 Epilepsy, unspecified, not intractable, without status epilepticus; Z79.899 Other long term (current) drug therapy
CPT/HCPCS: 82962; 88305

== ENCOUNTER → 2016-08-08 | Outpatient (CLI) | payer OTHER ==
[2016-08-08 09:31] LABS: BASOPHILS % (AUTO) 1 % (0-10); EOSINOPHILS # (AUTO) 0.1 10^3/uL (0.0-0.3); EOSINOPHILS % (AUTO) 2 % (0-10); LYMPHOCYTES % (AUTO) 31 % (12-44); MEAN CORPUSCULAR HEMOGLOBIN 29 PG (25-34); MEAN CORPUSCULAR HGB CONC 32 G/DL (32-36); MEAN CORPUSCULAR VOLUME 90 FL (80-99); MEAN PLATELET VOLUME 9.4 FL (7.4-10.4); MONOCYTES # (AUTO) 0.5 X 10^3 (0.0-1.0); MONOCYTES % (AUTO) 8 % (0-12); NEUTROPHILS # (AUTO) 3.9 X 10^3 (1.8-7.8); NEUTROPHILS % (AUTO) 59 % (42-75); PLATELET COUNT 297 10^3/uL (130-400); RED BLOOD COUNT 4.79 10^6/uL (4.35-5.85); RED CELL DISTRIBUTION WIDTH 13.4 % (10.0-14.5); WHITE BLOOD COUNT 6.6 10^3/uL (4.3-11.0)
[2016-08-08 09:49] LABS: ALANINE AMINOTRANSFERASE 25 U/L (0-55); ANION GAP 13 MMOL/L (5-14); ASPARTATE AMINO TRANSFERASE 18 U/L (5-34); BILIRUBIN,TOTAL 0.4 MG/DL (0.1-1.0); BLOOD UREA NITROGEN 21 MG/DL (7-18); BUN/CREATININE RATIO 27 (0-20); CALCIUM 9.5 MG/DL (8.5-10.1); CARBON DIOXIDE 21 MMOL/L (21-32); CHLORIDE 108 MMOL/L (98-107); CHOLESTEROL 217 MG/DL (< 200); CREATININE SERUM 0.78 MG/DL (0.60-1.30); DIRECT LDL 125 MG/DL (1-129); GFR ESTIMATED > 60; GLUCOSE 106 MG/DL (70-105); HEMOLYSIS 11 (-100-29); ICTERUS 0.7 (-100-1.9); LIPEMIA 14 (-100-49); MAGNESIUM 2.5 MG/DL (1.8-2.4); POTASSIUM 4.1 MMOL/L (3.6-5.0); SODIUM 142 MMOL/L (135-145); TOTAL PROTEIN 7.3 GM/DL (6.4-8.2); TRIGLYCERIDES 151 MG/DL (<150); VLDL CHOLESTEROL 30 MG/DL (5-40); hs C REACTIVE PROTEIN 0.32 MG/DL (0.00-0.50)
[2016-08-08 10:22] LABS: THYROID STIMULATING HORMONE 0.39 UIU/ML (0.35-4.94)
[2016-08-09 07:24] LABS: VITAMIN D 25-HYDROXY (TOTAL) 45 ng/mL (30-100)
== END ==
LOC: LAB 09:12
PROVIDERS: ATTEND Nurse Practitioner Family
DX: R51 Headache (principal); N39.0 Urinary tract infection, site not specified; R73.03 Prediabetes; I10 Essential (primary) hypertension; E53.8 Deficiency of other specified B group vitamins; E61.2 Magnesium deficiency; E78.5 Hyperlipidemia, unspecified
CPT/HCPCS: 36415; 80053; 80061; 82306; 83735; 84439; 84443; 84480; 85025; 86038; 86039; 86141

== ENCOUNTER → 2016-09-17 | Outpatient (CLI) | payer OTHER ==
[2016-09-18 07:30] LABS: C3 COMPLEMENT SERUM 151 mg/dL (73-183); C4 COMPLEMENT SERUM 39 mg/dL (15-59)
[2016-09-18 12:55] LABS: ANTI THYROID MICROSOMAL ABY 4.17 Units (0.00-100.00)
[2016-09-18 19:46] LABS: ANTI RIBONUCLEAR PROTEIN <20 Units (0-19); SJOGRENS SSA ANTIBODIES <20 Units (0-19); SJOGRENS SSB ANTIBODIES <20 Units (0-19); SSA INTP Negative (Negative); SSB INTP Negative (Negative)
[2016-09-19 06:34] LABS: ANTI RNP INTERP Negative (Negative)
[2016-09-19 06:46] LABS: SCLERODERMA ANTIBODY <20 UNITS (0-19)
[2016-09-19 06:47] LABS: SCL 70 INTERP Negative (Negative)
[2016-09-19 06:48] LABS: ANTI SMITH ANTIBODY <20 UNITS (0-19)
[2016-09-19 06:49] LABS: SMITH AB INTP Negative (Negative)
== END ==
LOC: LAB 15:30
PROVIDERS: ATTEND Internal Medicine Rheumatology
DX: R76.8 Other specified abnormal immunological findings in serum (principal)
CPT/HCPCS: 36415; 86038; 86039; 86160; 86235; 86376

== ENCOUNTER → 2016-12-18 | Outpatient (CLI) | payer OTHER ==
[2016-12-18 10:36] LABS: BILIRUBIN,URINE NEGATIVE (NEGATIVE); KETONES,URINE NEGATIVE (NEGATIVE); LEUKOCYTE ESTERASE ,URINE NEGATIVE (NEGATIVE); NITRITE,URINE NEGATIVE (NEGATIVE); PH,URINE 5 (5-9); PROTEIN,URINE NEGATIVE (NEGATIVE); UROBILINOGEN,URINE NORMAL (NORMAL)
[2016-12-18 10:43] LABS: BASOPHILS % (AUTO) 1 % (0-10); EOSINOPHILS # (AUTO) 0.1 10^3/uL (0.0-0.3); EOSINOPHILS % (AUTO) 2 % (0-10); LYMPHOCYTES # (AUTO) 1.8 X 10^3 (1.0-4.0); LYMPHOCYTES % (AUTO) 36 % (12-44); MEAN CORPUSCULAR HEMOGLOBIN 29 PG (25-34); MEAN CORPUSCULAR HGB CONC 33 G/DL (32-36); MEAN CORPUSCULAR VOLUME 89 FL (80-99); MEAN PLATELET VOLUME 9.9 FL (7.4-10.4); MONOCYTES # (AUTO) 0.3 X 10^3 (0.0-1.0); MONOCYTES % (AUTO) 6 % (0-12); NEUTROPHILS # (AUTO) 2.8 X 10^3 (1.8-7.8); NEUTROPHILS % (AUTO) 55 % (42-75); PLATELET COUNT 294 10^3/uL (130-400); RED BLOOD COUNT 4.41 10^6/uL (4.35-5.85); RED CELL DISTRIBUTION WIDTH 12.5 % (10.0-14.5)
[2016-12-18 11:52] LABS: ALANINE AMINOTRANSFERASE 23 U/L (0-55); ALBUMIN 4.2 GM/DL (3.2-4.5); ANION GAP 10 MMOL/L (5-14); ASPARTATE AMINO TRANSFERASE 21 U/L (5-34); BILIRUBIN,TOTAL 0.6 MG/DL (0.1-1.0); BLOOD UREA NITROGEN 18 MG/DL (7-18); BUN/CREATININE RATIO 23; CALCIUM 9.1 MG/DL (8.5-10.1); CARBON DIOXIDE 22 MMOL/L (21-32); CHLORIDE 109 MMOL/L (98-107); CHOLESTEROL 192 MG/DL (< 200); DIRECT LDL 112 MG/DL (1-129); GFR ESTIMATED > 60; GLUCOSE 94 MG/DL (70-105); MAGNESIUM 2.2 MG/DL (1.8-2.4); SODIUM 141 MMOL/L (135-145); TOTAL PROTEIN 7.2 GM/DL (6.4-8.2); TRIGLYCERIDES 86 MG/DL (<150); URIC ACID 4.7 MG/DL (2.6-7.2); VLDL CHOLESTEROL 17 MG/DL (5-40)
[2016-12-18 12:13] LABS: THYROID STIMULATING HORMONE 2.59 UIU/ML (0.35-4.94)
[2016-12-19 05:40] LABS: EBV EA AB INT Positive (Negative); EBV VCA IGG INT Positive (Negative); LYME AB G M 0.04 Index (0.00-0.89)
[2016-12-19 06:42] LABS: VITAMIN D 25-HYDROXY (TOTAL) 54 ng/mL (30-100)
[2016-12-19 06:46] LABS: LYME AB INTERP Negative (Negative)
[2016-12-19 06:47] LABS: EBV NUC IGG INT Positive (Negative); EPSTEIN BARR EARLY ANTIGEN 26.1 U/mL (0.0-8.9); TULAREMIA ANTIBODY <1:20
== END ==
LOC: LAB 09:32
PROVIDERS: ATTEND Nurse Practitioner Family
DX: R51 Headache (principal); D64.9 Anemia, unspecified; R53.83 Other fatigue
CPT/HCPCS: 36415; 80053; 80061; 81000; 82306; 82525; 83540; 83735; 84439; 84443; 84480; 84550; 84590; 84630; 85025; 86038; 86611; 86618; 86663; 86664; 86665; 86666; 86668; 86757

== ENCOUNTER 2016-12-30 20:31 | Emergency (ER) | payer OTHER ==
[~2016-12-30] VITALS: Ht 154.9 cm; Wt 74.4 kg
[2016-12-30] MEDS ORDERED: PENI500T PO (21:41)
[2016-12-30] MEDS ORDERED: ONDN4T PO (21:41)
[2016-12-30] MEDS ORDERED: ACET-2267 PO (21:42)
[2016-12-30] MEDS ORDERED: NF-SKEL800 PO (21:42)
[2016-12-30] MEDS ORDERED: KETOROLAC 30 MG/ML VIAL IVP ONE (21:45)
--- NOTE | 2016-12-30 21:48 | ED Back Pain ---
General Chief Complaint: Back Problems Stated Complaint: BACK PAIN Nursing Triage Note: pt c/o back pain below left shoulder pain starting this afternoon. muscle spasms this evening. Nursing Sepsis Screen: No Definite Risk Source of Information: Patient, Spouse Exam Limitations: No Limitations History of Present Illness Time Seen by Provider: 21:35 Initial Comments Patient presents to ER by private conveyance with her significant other and a chief complaint that this afternoon she experienced a excruciating pain under her left shoulder blade that she associated with her back. She has a history of low back pain but never anything like this for. It came on relatively quickly was severe and her was rubbing her back which helped and he said he could feel a knot but after he started massaging it for some time pain became excruciating worse than childbirth. She took Skelaxin and this did not improve her pain at all. She also took Tylenol with no improvement. She has no dysuria, shortness of breath for the past 2-3 days she's had a nonproductive cough. She is a no fevers or chills. 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 5 days ago she was started on penicillin 500 mg 3 times a day. She's had no nausea, vomiting, diarrhea, constipation. She has no coronary artery history. She does not smoke. She has no dysuria or hematuria and no history of kidney stones. Incidentally she has had a stent was not on a blood thinners anymore. She had a meningioma over a year ago removed and has some residual right arm weakness but this has not changed in the last few days. Allergies and Home Medications Allergies Coded Allergies: erythromycin base (Verified Allergy, Intermediate, HIVES, 06/23/16) Home Medications Acetaminophen 500 Mg Tablet, 1,000 MG PO, (Reported) Atorvastatin Calcium 40 Mg Tablet, 40 MG PO DAILY, (Reported) Bupropion HCl 150 Mg Tablet.er, 150 MG PO, (Reported) Carvedilol 3.125 Mg Tablet, 3.125 MG PO BID, (Reported) Cholecalciferol (Vitamin D3) 50,000 Unit Capsule, 50,000 UNIT PO WEEK, (Reported ) Loratadine 10 Mg Tab, 10 MG PO DAILY, (Reported) Metaxalone 800 Mg Tablet, 800 MG PO DAILY, (Reported) Metformin Hcl 500 Mg Tab.sr.24h, 500 MG PO DAILY WITH MEAL, (Reported) Omeprazole 20 Mg Capsule.dr, 20 MG PO DAILY, (Reported) Ondansetron HCl 4 Mg Tab, 4 MG PO PRN, (Reported) Penicillin V Potassium 500 Mg Tablet, 500 MG PO TID, (Reported) Potassium Chloride 20 Meq Tab.prt.sr, 20 MEQ PO DAILY, (Reported) Topiramate 25 Mg Tab, 25 MG PO EVENING, (Reported) Torsemide 20 Mg Tablet, 20 MG PO DAILY, (Reported) Constitutional: No chills, No diaphoresis, No fever, No malaise EENTM: No ear discharge, No ear pain Respiratory: cough, No orthopnea, No short of breath, No wheezing Cardiovascular: No chest pain, No edema, Hx of Intervention (stent) Genitourinary: No discharge, No dysuria Musculoskeletal: see HPI, back pain, No joint pain Skin: No pruritus, No rash Psychiatric/Neurological: Denies Headache, Denies Numbness, Denies Paresthesia Past Tamepoz-Nzdqnb-Frsbwo Hx Patient Social History Alcohol Use: Denies Use Recreational Drug Use: No Smoking Status: Never a Smoker Recent Foreign Travel: No Contact w/Someone Who Travel: No Recent Infectious Disease Expo: No Recent Hopitalizations: No Immunizations Up To Date Date of Influenza Vaccine: Nov 05, 2015 Seasonal Allergies Seasonal Allergies: Yes Surgeries Surgeries: Breast, Coronary Stent, Gallbladder, Hysterectomy, Orthopedic Cardiovascular Cardiac Disorders: Coronary Artery Disease, High Cholesterol, Hypertension Neurological Neurological Disorders: Brain Tumor, Headaches /Migraines, Seizure Disorder Reproductive System Hx Reproductive Disorders: No Sexually Transmitted Disease: No HIV/AIDS: No [employer] History: Hysterectomy Gastrointestinal Gastrointestinal Disorders: Gastroesophageal Reflux Endocrine Endocrine Disorders: Hypothyroidsim, Diabetes, Non-Insulin dep HEENT Loss of Vision: Bilateral Hearing Impairment: Denies Cancer Cancer: Skin Psychosocial Behavioral Health Disorders: Anxiety Blood Transfusions Adverse Reaction to a Blood Tr: No (N/A) Family Medical History Significant Family History: No Pertinent Family Hx Physical Exam Vital Signs Vital Sign - Last 12Hours 12/30/16 21:26 Temp 98.4 Pulse 77 Resp 16 B/P (MAP) 176/107 O2 Delivery Room Air Capillary Refill : Less Than 3 Seconds General Appearance: WD/WN, Moderate Distress HEENT: PERRL/EOMI, Normal ENT Inspection, Pharynx Normal Neck: Full Range of Motion, Normal Inspection, Non Tender, Supple Cardiovascular: Regular Rate, Rhythm, No Edema, No Gallop Respiratory: Chest Non Tender, Lungs Clear, Normal Breath Sounds Peripheral Pulses: 2+ Dorsalis Pedis (R), 2+ Radial Pulses (R), 2+ Radial Pulses (L) Gastrointestinal: Normal Bowel Sounds, Non Tender, Soft Back: Normal Inspection, No Vertebral Tenderness, CVA Tenderness (L) Extremity: Normal Capillary Refill, Normal Inspection, No Pedal Edema (to percussion) Neurologic/Psychiatric: Alert, Oriented x3 Skin: Normal Color, Warm/Dry Lymphatic: No Adenopathy Progress/Results/Core Measures Results/Orders Lab Results Laboratory Tests Test 12/30/16 21:45 12/30/16 22:21 Range/Units White Blood Count 7.6 4.3-11.0 10^3/uL Red Blood Count 4.48 4.35-5.85 10^6/uL Hemoglobin 13.3 11.5-16.0 G/DL Hematocrit 40 35-52 % Mean Corpuscular Volume 88 80-99 FL Mean Corpuscular Hemoglobin 30 25-34 PG Mean Corpuscular Hemoglobin Concent 34 32-36 G/DL Red Cell Distribution Width 12.6 10.0-14.5 % Platelet Count 314 130-400 10^3/uL Mean Platelet Volume 9.4 7.4-10.4 FL Neutrophils (%) (Auto) 50 42-75 % Lymphocytes (%) (Auto) 40 12-44 % Monocytes (%) (Auto) 7 0-12 % Eosinophils (%) (Auto) 2 0-10 % Basophils (%) (Auto) 1 0-10 % Neutrophils # (Auto) 3.8 1.8-7.8 X 10^3 Lymphocytes # (Auto) 3.0 1.0-4.0 X 10^3 Monocytes # (Auto) 0.6 0.0-1.0 X 10^3 Eosinophils # (Auto) 0.2 0.0-0.3 10^3/uL Basophils # (Auto) 0.1 0.0-0.1 10^3/uL D-Dimer 0.34 0.00-0.49 UG/ML Sodium Level 142 135-145 MMOL/L Potassium Level 3.8 3.6-5.0 MMOL/L Chloride Level 108 H 98-107 MMOL/L Carbon Dioxide Level 24 21-32 MMOL/L Anion Gap 10 5-14 MMOL/L Blood Urea Nitrogen 15 7-18 MG/DL Creatinine 0.76 0.60-1.30 MG/DL Estimat Glomerular Filtration Rate > 60 BUN/Creatinine Ratio 20 Glucose Level 103 70-105 MG/DL Calcium Level 9.1 8.5-10.1 MG/DL Total Bilirubin 0.3 0.1-1.0 MG/DL Aspartate Amino Transf (AST/SGOT) 20 5-34 U/L Alanine Aminotransferase (ALT/SGPT) 21 0-55 U/L Alkaline Phosphatase 90 40-136 U/L Troponin I < 0.30 <0.30 NG/ML Total Protein 7.2 6.4-8.2 GM/DL Albumin 4.1 3.2-4.5 GM/DL Urine Color YELLOW Urine Clarity CLEAR Urine pH 5 5-9 Urine Specific [place] 1.025 H 1.016-1.022 Urine Protein 1+ H NEGATIVE Urine Glucose (UA) NEGATIVE NEGATIVE Urine Ketones NEGATIVE NEGATIVE Urine Nitrite NEGATIVE NEGATIVE Urine Bilirubin NEGATIVE NEGATIVE Urine Urobilinogen 1 NORMAL MG/DL Urine Leukocyte Esterase 1+ H NEGATIVE Urine RBC (Auto) NEGATIVE NEGATIVE Urine RBC NONE /HPF Urine WBC 2-5 /HPF Urine Squamous Epithelial Cells 25-50 H /HPF Urine Crystals PRESENT H /LPF Urine Calcium Oxalate Crystals MODERATE H /LPF Urine Bacteria FEW H /HPF Urine Casts NONE /LPF Urine Mucus NEGATIVE /LPF Urine Culture Indicated NO My Orders Orders - AMA VILLAVICENCIO Cbc With Automated Diff (12/30/16 21:36) Comprehensive Metabolic Panel (12/30/16 21:36) Fibrin Degradation Products (12/30/16 21:36) Troponin I (12/30/16 21:36) Ua Culture If Indicated (12/30/16 21:36) Chest Pa/Lat (2 View) (12/30/16 21:36) Ketorolac Injection (Toradol Injection) (12/30/16 21:45) Saline Lock/Iv-Start (12/30/16 21:36) Ekg Tracing (12/30/16 21:36) Vital Signs/I&O Vital Sign - Last 12Hours 12/30/16 21:26 Temp 98.4 Pulse 77 Resp 16 B/P (MAP) 176/107 O2 Delivery Room Air Blood Pressure Mean: 130 Progress Note : Time: 21:46 Progress Note Concern for musculoskeletal versus diaphragmatic, pleural or pneumonia, intra- abdominal process such as a retroperitoneal, renal stone or infection. We'll grab urine and blood and do a chest x-ray before deciding whether to get a CAT scan of her chest. The pain is not reproduced on examination or palpation or deep inspiration. She does have CVA tenderness to percussion however. ECG Initial ECG Impression Date: Dec 30, 2016 Initial ECG Impression Time: 21:48 Initial ECG Rate: 73 Initial ECG Rhythm: Normal Sinus Initial ECG Intervals: Normal Initial ECG Impression: Normal, Nonspecific Changes Initial ECG Comparisson: No Previous ECG Available Comment No T-wave elevation or depression. Diagnostic Imaging Diagonstic Imaging: Xray Plain Films/CT/US/NM/MRI: chest (2v) Comments No acute cardiopulmonary processes noted. Reviewed: Reviewed by Me Departure Impression Impression: Primary Impression: Pleurisy without effusion Disposition: 01 HOME, SELF-CARE Condition: Improved Departure-Patient Inst. Decision time for Depature: 23:17 Referrals: DAVIDA BAIRD DO (PCP/Family) Primary Care Physician Patient Instructions: Pleuritic Chest Pain (DC) Add. Discharge Instructions: Drink plenty of fluids and use her muscle relaxants and opiates as necessary. Take Naprosyn or Aleve 2 tablets twice a day for the next 2 weeks. If not seeing some improvement in 1-2 weeks she should follow-up with your primary care physician for further management. Heat, icy hot, Biofreeze, stretching exercises and calisthenics as well as massage and chiropractic are also recommended. She began to have worsening chest pain, shortness of breath or nausea and vomiting should return to the ER for further evaluation. All discharge instructions reviewed with patient and/or family. Voiced understanding. Scripts Hydrocodone/Acetaminophen (Hydrocodon -Acetaminophen 5-325) 1 Each Tablet 1-2 EACH PO Q6H Y for BREAKTHROUGH PAIN, #20 TAB 0 Refills Prov: AMA VILLAVICENCIO 12/30/16 Prednisone (Prednisone) 20 Mg Tab 40 MG PO DAILY for 5 Days, #10 TAB 0 Refills Prov: AMA VILLAVICENCIO 12/30/16 Copy Copies To 1: BAIRDDAVIDA LINCOLN TITUS J Dec 30, 2016 21:48
[2016-12-30 21:56] LABS: BASOPHILS # (AUTO) 0.1 10^3/uL (0.0-0.1); BASOPHILS % (AUTO) 1 % (0-10); EOSINOPHILS # (AUTO) 0.2 10^3/uL (0.0-0.3); EOSINOPHILS % (AUTO) 2 % (0-10); LYMPHOCYTES % (AUTO) 40 % (12-44); MEAN CORPUSCULAR HEMOGLOBIN 30 PG (25-34); MEAN CORPUSCULAR HGB CONC 34 G/DL (32-36); MEAN CORPUSCULAR VOLUME 88 FL (80-99); MEAN PLATELET VOLUME 9.4 FL (7.4-10.4); MONOCYTES # (AUTO) 0.6 X 10^3 (0.0-1.0); MONOCYTES % (AUTO) 7 % (0-12); NEUTROPHILS # (AUTO) 3.8 X 10^3 (1.8-7.8); NEUTROPHILS % (AUTO) 50 % (42-75); PLATELET COUNT 314 10^3/uL (130-400); RED BLOOD COUNT 4.48 10^6/uL (4.35-5.85); RED CELL DISTRIBUTION WIDTH 12.6 % (10.0-14.5); WHITE BLOOD COUNT 7.6 10^3/uL (4.3-11.0)
[2016-12-30 22:16] LABS: TROPONIN I < 0.30 NG/ML (<0.30)
[2016-12-30 22:27] LABS: ALANINE AMINOTRANSFERASE 21 U/L (0-55); ALBUMIN 4.1 GM/DL (3.2-4.5); ANION GAP 10 MMOL/L (5-14); ASPARTATE AMINO TRANSFERASE 20 U/L (5-34); BILIRUBIN,TOTAL 0.3 MG/DL (0.1-1.0); BLOOD UREA NITROGEN 15 MG/DL (7-18); BUN/CREATININE RATIO 20; CALCIUM 9.1 MG/DL (8.5-10.1); CARBON DIOXIDE 24 MMOL/L (21-32); CHLORIDE 108 MMOL/L (98-107); CREATININE SERUM 0.76 MG/DL (0.60-1.30); GFR ESTIMATED > 60; GLUCOSE 103 MG/DL (70-105); POTASSIUM 3.8 MMOL/L (3.6-5.0); SODIUM 142 MMOL/L (135-145); TOTAL PROTEIN 7.2 GM/DL (6.4-8.2)
[2016-12-30 22:30] LABS: BILIRUBIN,URINE NEGATIVE (NEGATIVE); KETONES,URINE NEGATIVE (NEGATIVE); LEUKOCYTE ESTERASE ,URINE 1+ (NEGATIVE); NITRITE,URINE NEGATIVE (NEGATIVE); PH,URINE 5 (5-9); PROTEIN,URINE 1+ (NEGATIVE); UROBILINOGEN,URINE 1 MG/DL (NORMAL)
[2016-12-30 22:36] LABS: CALCIUM OXALATE CRYSTALS,UR MODERATE /LPF; SQUAMOUS EPITHELIAL CELL,UR 25-50 /HPF
[2016-12-30] MEDS ORDERED: PRD20T PO (23:19)
[2016-12-30] MEDS ORDERED: HYDR-3812 PO (23:19)
[2016-12-30] MEDS ORDERED: ORPHENADRINE 60 MG/2 ML (NORFLEX) AMP IV ONE (23:30)
[2016-12-31 00:11] VITALS: BP 150/87
--- NOTE | 2016-12-31 06:47 | Diagnostic Imaging Report ---
INDICATION: Back pain. Comparison with 02/18/2016. FINDINGS: PA and lateral chest show lungs to be clear. Heart is not enlarged. There are no infiltrates or masses. No pneumothorax or pleural effusion. No bony abnormalities. IMPRESSION: Negative PA and lateral chest. Dictated by: Dictated on workstation # [id number]
== END 2016-12-31 00:11 | disposition home or self-care (01) ==
LOC: EDUNIT# 20:31 → ER 20:33
DX: R09.1 Pleurisy (principal); I25.10 Atherosclerotic heart disease of native coronary artery without angina pectoris; E78.00 Pure hypercholesterolemia, unspecified; I10 Essential (primary) hypertension; G43.909 Migraine, unspecified, not intractable, without status migrainosus; G40.909 Epilepsy, unspecified, not intractable, without status epilepticus; K21.9 Gastro-esophageal reflux disease without esophagitis; E11.9 Type 2 diabetes mellitus without complications; E03.9 Hypothyroidism, unspecified; F41.9 Anxiety disorder, unspecified; Z95.5 Presence of coronary angioplasty implant and graft; Z79.84 Long term (current) use of oral hypoglycemic drugs; Z90.710 Acquired absence of both cervix and uterus
CPT/HCPCS: 36415; 71020; 80053; 81000; 84484; 85025; 85379; 93005

== ENCOUNTER → 2017-01-26 | Outpatient (CLI) | payer OTHER ==
[~2017-01-26] MED LIST changes: +ACET-2267 PO; +CARV3.122 PO; +HYDR-3812 PO; +LORA10TA7 PO; +NF-SKEL800 PO; +ONDN4T PO; +PENI500T PO; +POTA-51 PO; +PRD20T PO; +TOPI25TA10 PO; +TORS20TA3 PO
[2017-01-26 16:28] LABS: BILIRUBIN,TOTAL 0.4 MG/DL (0.1-1.0); CALCIUM 9.1 MG/DL (8.5-10.1); CREATININE SERUM 0.99 MG/DL (0.60-1.30); POTASSIUM 3.3 MMOL/L (3.6-5.0); TOTAL PROTEIN 7.3 GM/DL (6.4-8.2); hs C REACTIVE PROTEIN 0.32 MG/DL (0.00-0.50)
[2017-01-26 16:29] LABS: KETONES,URINE NEGATIVE (NEGATIVE); LEUKOCYTE ESTERASE ,URINE 2+ (NEGATIVE); NITRITE,URINE NEGATIVE (NEGATIVE); PH,URINE 6 (5-9); PROTEIN,URINE 2+ (NEGATIVE); UROBILINOGEN,URINE NORMAL (NORMAL)
[2017-01-26 16:56] LABS: BILIRUBIN,URINE 1+ (NEGATIVE)
[2017-01-28 11:53] LABS: ANTI DNASE B ANTIBODY 397 U/mL (0-260)
== END ==
LOC: LAB 15:24
PROVIDERS: ATTEND Nurse Practitioner Family
DX: R50.9 Fever, unspecified (principal); M79.1 Myalgia; A44.9 Bartonellosis, unspecified
CPT/HCPCS: 36415; 80053; 81000; 82550; 86038; 86039; 86060; 86141; 86215

== ENCOUNTER → 2017-01-29 | Outpatient (CLI) | payer OTHER | LOC: CARD 08:46 | PROVIDERS: ATTEND Nurse Practitioner Family | DX: R07.9 Chest pain, unspecified (principal); R50.9 Fever, unspecified | CPT/HCPCS: 93306 ==

== ENCOUNTER → 2017-03-12 | Outpatient (CLI) | payer OTHER ==
[~2017-03-12] MED LIST changes: +ACHD5005 PO; -HYDR-3812 PO
[2017-03-12 09:26] LABS: HEMOGLOBIN 13.8 G/DL (11.5-16.0); MEAN PLATELET VOLUME 9.7 FL (7.4-10.4); RED BLOOD COUNT 4.65 10^6/uL (4.35-5.85); RED CELL DISTRIBUTION WIDTH 12.5 % (10.0-14.5); WHITE BLOOD COUNT 6.6 10^3/uL (4.3-11.0)
[2017-03-12 09:46] LABS: ALANINE AMINOTRANSFERASE 19 U/L (0-55); ALBUMIN 4.1 GM/DL (3.2-4.5); ALKALINE PHOSPHATASE 82 U/L (40-136); BILIRUBIN,TOTAL 0.7 MG/DL (0.1-1.0); BUN/CREATININE RATIO 22; CALCIUM 9.1 MG/DL (8.5-10.1); CARBON DIOXIDE 23 MMOL/L (21-32); CHLORIDE 106 MMOL/L (98-107); CREATININE SERUM 0.78 MG/DL (0.60-1.30); GFR ESTIMATED > 60; GLUCOSE 100 MG/DL (70-105); POTASSIUM 3.7 MMOL/L (3.6-5.0); SODIUM 141 MMOL/L (135-145); TOTAL PROTEIN 7.4 GM/DL (6.4-8.2)
== END ==
LOC: LAB 09:08
PROVIDERS: ATTEND Nurse Practitioner Family
DX: A44.9 Bartonellosis, unspecified (principal); R76.0 Raised antibody titer
CPT/HCPCS: 36415; 80053; 85027; 86060; 86215; 86611; 86618; 86666; 86668; 86757

== ENCOUNTER 2017-03-24 14:05 | Outpatient (RCR) | payer OTHER ==
[2017-01-28] MEDS: DOXYCYCLINE 100 MG/NS 100 ML IVPB IV SCH ×4 (12:00→21:15)
[2017-01-28 12:05] LABS: HEMOGLOBIN 12.8 G/DL (11.5-16.0); MEAN PLATELET VOLUME 9.8 FL (7.4-10.4); RED BLOOD COUNT 4.39 10^6/uL (4.35-5.85); RED CELL DISTRIBUTION WIDTH 12.5 % (10.0-14.5); WHITE BLOOD COUNT 7.5 10^3/uL (4.3-11.0)
[2017-01-28] MEDS: CATHETER FLUSH 10 ML SYR IV PRN ×2 (13:05→21:15)
[2017-01-28 13:15] VITALS: BP 130/94
[2017-01-28 21:10] VITALS: BP 142/84
[2017-01-29 09:00] VITALS: BP 137/75
[2017-01-29] MEDS: DOXYCYCLINE 100 MG/NS 100 ML IVPB IV SCH ×4 (09:10→19:48)
[2017-01-29 10:07] VITALS: BP 137/75
[2017-01-29 22:42] VITALS: BP 124/80
[2017-01-30] MEDS: CATHETER FLUSH 10 ML SYR IV PRN ×4 (09:03→21:00)
[2017-01-30] MEDS: DOXYCYCLINE 100 MG/NS 100 ML IVPB IV SCH ×4 (09:03→20:07)
[2017-01-30 10:10] VITALS: BP 135/80
[2017-01-30 20:00] VITALS: BP 124/73
[2017-01-31] MEDS: CATHETER FLUSH 10 ML SYR IV PRN ×3 (08:54→20:33)
[2017-01-31] MEDS: DOXYCYCLINE 100 MG/NS 100 ML IVPB IV SCH ×4 (08:54→20:33)
[2017-01-31 09:47] VITALS: BP 137/94
[2017-01-31 21:36] VITALS: BP 107/63
[2017-02-01] MEDS: CATHETER FLUSH 10 ML SYR IV PRN ×4 (08:59→21:20)
[2017-02-01] MEDS: DOXYCYCLINE 100 MG/NS 100 ML IVPB IV SCH ×4 (09:00→20:23)
[2017-02-01 10:05] VITALS: BP 117/82
[2017-02-01 20:20] VITALS: BP 122/70
[2017-02-02] MEDS: DOXYCYCLINE 100 MG/NS 100 ML IVPB IV SCH ×4 (09:01→20:16)
[2017-02-02 09:06] VITALS: BP 125/84
[2017-02-02 09:59] VITALS: BP 125/84
[2017-02-02 21:57] VITALS: BP 126/73
[2017-02-03] MEDS: DOXYCYCLINE 100 MG/NS 100 ML IVPB IV SCH ×4 (09:05→20:07)
[2017-02-03] MEDS: CATHETER FLUSH 10 ML SYR IV PRN (09:06)
[2017-02-03 10:05] VITALS: BP 113/83
[2017-02-03 21:15] VITALS: BP 128/76
[2017-02-04] MEDS: CATHETER FLUSH 10 ML SYR IV PRN ×4 (09:07→21:02)
[2017-02-04] MEDS: DOXYCYCLINE 100 MG/NS 100 ML IVPB IV SCH ×4 (09:07→20:02)
[2017-02-04 09:11] VITALS: BP 133/93
[2017-02-04 10:03] VITALS: BP 133/93
[2017-02-04 21:00] VITALS: BP 113/72
[2017-02-05] MEDS: DOXYCYCLINE 100 MG/NS 100 ML IVPB IV SCH ×4 (09:20→20:08)
[2017-02-05] MEDS: CATHETER FLUSH 10 ML SYR IV PRN ×4 (09:22→21:03)
[2017-02-05 09:32] VITALS: BP 119/88
[2017-02-05 09:33] VITALS: BP 119/88
[2017-02-05 10:22] VITALS: BP 119/88
[2017-02-05 21:05] VITALS: BP 128/70
[2017-02-06] MEDS: DOXYCYCLINE 100 MG/NS 100 ML IVPB IV SCH ×4 (09:46→19:54)
[2017-02-06] MEDS: CATHETER FLUSH 10 ML SYR IV PRN ×2 (09:46→10:43)
[2017-02-06 09:51] VITALS: BP 113/79
[2017-02-06 10:44] VITALS: BP 113/79
[2017-02-06 22:01] VITALS: BP 105/60
[2017-02-07] MEDS: DOXYCYCLINE 100 MG/NS 100 ML IVPB IV SCH ×4 (10:04→21:20)
[2017-02-07] MEDS: CATHETER FLUSH 10 ML SYR IV PRN (11:00)
[2017-02-07 11:15] VITALS: BP 103/67
[2017-02-07 22:30] VITALS: BP 128/80
[2017-02-08] MEDS: CATHETER FLUSH 10 ML SYR IV PRN ×2 (09:25→10:23)
[2017-02-08] MEDS: DOXYCYCLINE 100 MG/NS 100 ML IVPB IV SCH ×4 (09:27→21:07)
[2017-02-08 09:29] VITALS: BP 129/83
[2017-02-08 10:25] VITALS: BP 129/83
[2017-02-08 21:00] VITALS: BP 129/83
[2017-02-09 10:23] VITALS: BP 127/78
[2017-02-09] MEDS: DOXYCYCLINE 100 MG/NS 100 ML IVPB IV SCH ×4 (10:32→21:10)
[2017-02-09] MEDS: CATHETER FLUSH 10 ML SYR IV PRN ×4 (10:32→22:06)
[2017-02-09 22:06] VITALS: BP 175/75
[2017-02-10 09:25] VITALS: BP 138/83
[2017-02-10] MEDS: CATHETER FLUSH 10 ML SYR IV PRN ×2 (09:25→10:20)
[2017-02-10] MEDS: DOXYCYCLINE 100 MG/NS 100 ML IVPB IV SCH ×4 (09:25→20:30)
[2017-02-10 22:12] VITALS: BP 123/75
[2017-02-11] MEDS: DOXYCYCLINE 100 MG/NS 100 ML IVPB IV SCH ×4 (09:38→20:41)
[2017-02-11] MEDS: CATHETER FLUSH 10 ML SYR IV PRN ×2 (09:38→10:30)
[2017-02-11 10:30] VITALS: BP 129/87
[2017-02-11 20:46] VITALS: BP 129/84
[2017-02-11 21:42] VITALS: BP 129/84
[2017-02-12] MEDS: DOXYCYCLINE 100 MG/NS 100 ML IVPB IV SCH ×4 (09:30→20:58)
[2017-02-12 09:37] VITALS: BP 120/77
[2017-02-12 10:29] VITALS: BP 120/77
[2017-02-12 23:25] VITALS: BP 126/63
[2017-02-13] MEDS: DOXYCYCLINE 100 MG/NS 100 ML IVPB IV SCH ×6 (06:48→21:20)
[2017-02-13] MEDS: CATHETER FLUSH 10 ML SYR IV PRN ×2 (10:07→21:20)
[2017-02-13 11:00] VITALS: BP 125/78
[2017-02-13 21:23] VITALS: BP 125/78
[2017-02-14] MEDS: CATHETER FLUSH 10 ML SYR IV PRN ×2 (09:39→10:41)
[2017-02-14] MEDS: DOXYCYCLINE 100 MG/NS 100 ML IVPB IV SCH ×4 (09:40→21:46)
[2017-02-14 10:45] VITALS: BP 145/82
[2017-02-14 23:14] VITALS: BP 126/64
[2017-02-15] MEDS: CATHETER FLUSH 10 ML SYR IV PRN ×2 (09:44→10:45)
[2017-02-15] MEDS: DOXYCYCLINE 100 MG/NS 100 ML IVPB IV SCH ×4 (09:45→21:28)
[2017-02-15 10:53] VITALS: BP 131/85
[2017-02-15 21:25] VITALS: BP 133/75
[2017-02-16] MEDS: CATHETER FLUSH 10 ML SYR IV PRN (09:31)
[2017-02-16] MEDS: DOXYCYCLINE 100 MG/NS 100 ML IVPB IV SCH ×4 (09:31→21:25)
[2017-02-16 09:34] VITALS: BP 145/90
[2017-02-16 10:29] VITALS: BP 145/90
[2017-02-16 22:35] VITALS: BP 147/83
[2017-02-17] MEDS: DOXYCYCLINE 100 MG/NS 100 ML IVPB IV SCH ×4 (09:54→20:45)
[2017-02-17] MEDS: CATHETER FLUSH 10 ML SYR IV PRN ×4 (09:54→21:39)
[2017-02-17 10:22] VITALS: BP 126/81
[2017-02-17 21:40] VITALS: BP 128/73
[2017-02-18] MEDS: CATHETER FLUSH 10 ML SYR IV PRN ×2 (09:41→10:41)
[2017-02-18] MEDS: DOXYCYCLINE 100 MG/NS 100 ML IVPB IV SCH ×4 (09:42→20:23)
[2017-02-18 10:42] VITALS: BP 137/84
[2017-02-18 21:51] VITALS: BP 135/75
[2017-02-19] MEDS: DOXYCYCLINE 100 MG/NS 100 ML IVPB IV SCH ×4 (09:32→16:25)
[2017-02-19] MEDS: CATHETER FLUSH 10 ML SYR IV PRN ×2 (09:32→10:26)
[2017-02-19 10:26] VITALS: BP 150/94
[2017-02-19 17:22] VITALS: BP 141/91
[2017-02-20] MEDS: CATHETER FLUSH 10 ML SYR IV PRN ×2 (20:45→21:45)
[2017-02-20] MEDS: DOXYCYCLINE 100 MG/NS 100 ML IVPB IV SCH ×2 (20:45)
[2017-02-20 21:45] VITALS: BP 120/79
[2017-02-21] MEDS: CATHETER FLUSH 10 ML SYR IV PRN ×4 (09:44→21:15)
[2017-02-21] MEDS: DOXYCYCLINE 100 MG/NS 100 ML IVPB IV SCH ×4 (09:45→20:15)
[2017-02-21 10:46] VITALS: BP 114/76
[2017-02-21 21:15] VITALS: BP 128/83
[2017-02-22] MEDS: CATHETER FLUSH 10 ML SYR IV PRN ×3 (09:49→20:50)
[2017-02-22] MEDS: DOXYCYCLINE 100 MG/NS 100 ML IVPB IV SCH ×4 (09:50→20:51)
[2017-02-22 10:55] VITALS: BP 123/81
[2017-02-22 20:50] VITALS: BP 128/80
[2017-02-23 09:44] VITALS: BP 154/84
[2017-02-23] MEDS: DOXYCYCLINE 100 MG/NS 100 ML IVPB IV SCH ×4 (10:01→21:12)
[2017-02-23] MEDS: CATHETER FLUSH 10 ML SYR IV PRN ×2 (10:01→10:56)
[2017-02-23 21:15] VITALS: BP 126/71
[2017-02-24] MEDS: CATHETER FLUSH 10 ML SYR IV PRN ×3 (09:31→22:30)
[2017-02-24] MEDS: DOXYCYCLINE 100 MG/NS 100 ML IVPB IV SCH ×4 (09:32→21:28)
[2017-02-24 10:35] VITALS: BP 140/89
[2017-02-24 22:40] VITALS: BP 131/75
[2017-02-25] MEDS: DOXYCYCLINE 100 MG/NS 100 ML IVPB IV SCH ×4 (09:49→20:47)
[2017-02-25 09:54] VITALS: BP 124/77
[2017-02-25 10:49] VITALS: BP 124/77
[2017-02-25] MEDS: CATHETER FLUSH 10 ML SYR IV PRN ×2 (20:47→21:48)
[2017-02-25 23:06] VITALS: BP 133/70
[2017-02-26] MEDS: DOXYCYCLINE 100 MG/NS 100 ML IVPB IV SCH ×2 (09:22)
[2017-02-26 09:43] VITALS: BP 127/87
[2017-02-26 10:22] VITALS: BP 127/87
[2017-03-02 14:22] VITALS: BP 146/92
[2017-03-09] MEDS: CATHETER FLUSH 10 ML SYR IV PRN (15:05)
[2017-03-09 15:15] VITALS: BP 138/86
[2017-03-17 11:30] VITALS: BP 140/100
[~2017-03-24] VITALS: Ht 154.9 cm; Wt 74.4 kg
[~2017-03-24 14:05] MED LIST changes: +DOXYCYCLINE 100 MG INJ (VIBRAMYCIN) ONE; +LACTATED RINGERS 1,000 ML IV ONE; +NS (IVPB) 100 ML ONE
== END 2017-03-24 14:25 | disposition home or self-care (01) ==
LOC: 4TH RCR 14:05
PROVIDERS: ATTEND Nurse Practitioner Family
DX: A44.9 Bartonellosis, unspecified (principal)
CPT/HCPCS: 36415; 36569; 36592; 76937; 85027; 96365; 96366; 96375; 99211; 99212

== ENCOUNTER → 2017-04-01 | Outpatient (CLI) | payer OTHER ==
[~2017-04-01] MED LIST changes: -DOXYCYCLINE 100 MG INJ (VIBRAMYCIN) ONE; +GADOBUTROL 7.5 MMOL/7.5 ML (GADAVIST) VIAL IV ONE; -LACTATED RINGERS 1,000 ML IV ONE; -NS (IVPB) 100 ML ONE
--- NOTE | 2017-04-01 14:46 | Diagnostic Imaging Report ---
INDICATION: Bilateral rib pain. TIME OF EXAM: 2:18 PM FINDINGS: Bilateral ribs appear to be intact. No displaced rib fractures seen. No parenchymal contusion, effusion or pneumothorax is identified. IMPRESSION: No significant abnormality is detected. Dictated by: Dictated on workstation # [id number]
--- NOTE | 2017-04-01 15:26 | Diagnostic Imaging Report ---
PROCEDURE: MR imaging of the brain with and without contrast. TECHNIQUE: Multiplanar, multisequence MR imaging of the brain was performed with and without contrast. INDICATION: History of brain tumor and unsteady gait. COMPARISON: Comparison is made with prior MRI of the brain from 08/16/2015. FINDINGS: Postop changes of left posterior parietal craniectomy are again noted. There is no evidence of residual or recurrent tumor. The focal calvarial defect in the left parietal region is stable. There is no midline shift. There is no diffusion restriction. The normal expected flow voids within the carotid siphons are seen. No abnormal enhancement is identified. The corpus callosum is unremarkable. The sella and parasellar structures are unremarkable. IMPRESSION: Stable MRI of the brain when compared with prior examination from 08/16/2015. Dictated by: Dictated on workstation # [id number]
== END ==
LOC: RAD 13:37
PROVIDERS: ATTEND Nurse Practitioner Family
DX: R26.81 Unsteadiness on feet (principal); R07.81 Pleurodynia; Z86.011 Personal history of benign neoplasm of the brain
CPT/HCPCS: 70553; 71110

== ENCOUNTER → 2017-04-17 | Outpatient (CLI) | payer OTHER ==
[~2017-04-17] MED LIST changes: -GADOBUTROL 7.5 MMOL/7.5 ML (GADAVIST) VIAL IV ONE
[2017-04-17 10:39] LABS: HEMOGLOBIN 12.9 G/DL (11.5-16.0); RED BLOOD COUNT 4.32 10^6/uL (4.35-5.85); RED CELL DISTRIBUTION WIDTH 12.4 % (10.0-14.5); WHITE BLOOD COUNT 5.6 10^3/uL (4.3-11.0)
[2017-04-17 11:13] LABS: ALANINE AMINOTRANSFERASE 18 U/L (0-55); ALBUMIN 4.1 GM/DL (3.2-4.5); ALKALINE PHOSPHATASE 84 U/L (40-136); BILIRUBIN,TOTAL 0.5 MG/DL (0.1-1.0); BUN/CREATININE RATIO 23; CALCIUM 8.8 MG/DL (8.5-10.1); CARBON DIOXIDE 23 MMOL/L (21-32); CHLORIDE 108 MMOL/L (98-107); GFR ESTIMATED > 60; GLUCOSE 93 MG/DL (70-105); POTASSIUM 3.9 MMOL/L (3.6-5.0); SODIUM 141 MMOL/L (135-145); TOTAL PROTEIN 7.1 GM/DL (6.4-8.2)
== END ==
LOC: LAB 09:43
PROVIDERS: ATTEND Nurse Practitioner Family
DX: R76.0 Raised antibody titer (principal)
CPT/HCPCS: 36415; 80053; 85027; 86060; 86215

== ENCOUNTER → 2017-04-17 | Outpatient (CLI) | payer OTHER | LOC: LAB 09:54 | PROVIDERS: ATTEND Internal Medicine Rheumatology | DX: R76.8 Other specified abnormal immunological findings in serum (principal) | CPT/HCPCS: 36415; 86038; 86039; 86160; 86225; 86235; 86376 ==

== ENCOUNTER → 2017-04-21 | Outpatient (CLI) | payer OTHER ==
--- NOTE | 2017-04-21 13:23 | Diagnostic Imaging Report ---
INDICATION: Sternal pain and rib pain. Sonographic interrogation over the sternum and chest wall was performed at the area of the patient's pain. FINDINGS: No solid or cystic masses are seen. No abnormalities are detected. IMPRESSION: No sonographic abnormality is identified. Dictated by: Dictated on workstation # [id number]
== END ==
LOC: RAD 10:36
PROVIDERS: ATTEND Nurse Practitioner Family
DX: R07.81 Pleurodynia (principal)
CPT/HCPCS: 76604

== ENCOUNTER → 2017-07-09 | Outpatient (CLI) | payer OTHER ==
[2017-07-09 12:20] LABS: CLARITY,URINE CLEAR; COLOR,URINE YELLOW; GLUCOSE, URINE (UA) NEGATIVE (NEGATIVE); KETONES,URINE NEGATIVE (NEGATIVE); LEUKOCYTE ESTERASE ,URINE 1+ (NEGATIVE); NITRITE,URINE NEGATIVE (NEGATIVE); PH,URINE 5 (5-9); PROTEIN,URINE 2+ (NEGATIVE); UROBILINOGEN,URINE 1 MG/DL (NORMAL)
[2017-07-09 12:31] LABS: BACTERIA,URINE FEW /HPF; WBC,URINE 0-2 /HPF
[2017-07-09 12:38] LABS: BILIRUBIN,URINE 1+ (NEGATIVE)
== END ==
LOC: LAB 11:45
PROVIDERS: ATTEND Nurse Practitioner Family
DX: R39.15 Urgency of urination (principal); L50.9 Urticaria, unspecified; W55.01XA Bitten by cat, initial encounter
CPT/HCPCS: 36415; 81000; 83520; 86611

== ENCOUNTER → 2017-08-20 | Outpatient (CLI) | payer OTHER ==
[2017-08-20 09:54] LABS: HEMOGLOBIN 12.6 G/DL (11.5-16.0); MEAN PLATELET VOLUME 9.6 FL (7.4-10.4); RED BLOOD COUNT 4.38 10^6/uL (4.35-5.85); RED CELL DISTRIBUTION WIDTH 13.1 % (10.0-14.5); WHITE BLOOD COUNT 5.3 10^3/uL (4.3-11.0)
[2017-08-20 10:18] LABS: ALANINE AMINOTRANSFERASE 16 U/L (0-55); ALBUMIN 4.1 GM/DL (3.2-4.5); ALKALINE PHOSPHATASE 77 U/L (40-136); BILIRUBIN,TOTAL 0.6 MG/DL (0.1-1.0); BUN/CREATININE RATIO 19; CALCIUM 9.2 MG/DL (8.5-10.1); CARBON DIOXIDE 25 MMOL/L (21-32); CHLORIDE 110 MMOL/L (98-107); GFR ESTIMATED > 60; GLUCOSE 94 MG/DL (70-105); POTASSIUM 3.6 MMOL/L (3.6-5.0); SODIUM 143 MMOL/L (135-145)
[2017-08-20 10:40] LABS: FREE T4 (FREE THYROXINE) 1.06 NG/DL (0.70-1.48)
[2017-08-24 15:43] LABS: IMMUNOFIX PATH REPORT NUMBER Complete (Complete)
== END ==
LOC: LAB 08:26
PROVIDERS: ATTEND Specialist
DX: R20.9 Unspecified disturbances of skin sensation (principal)
CPT/HCPCS: 36415; 80053; 82175; 82595; 82607; 82746; 83036; 83090; 83655; 83825; 83921; 84155; 84165; 84207; 84425; 84439; 84443; 85027; 85652; 86021; 86038; 86039; 86141; 86160; 86225; 86235; 86334; 86430

== ENCOUNTER → 2017-08-20 | Outpatient (CLI) | payer OTHER ==
[2017-08-20 09:45] LABS: BILIRUBIN,URINE NEGATIVE (NEGATIVE); CLARITY,URINE SLIGHTLY CLOUDY; COLOR,URINE YELLOW; GLUCOSE, URINE (UA) NEGATIVE (NEGATIVE); KETONES,URINE NEGATIVE (NEGATIVE); LEUKOCYTE ESTERASE ,URINE 1+ (NEGATIVE); NITRITE,URINE NEGATIVE (NEGATIVE); PH,URINE 6.5 (5-9); PROTEIN,URINE 1+ (NEGATIVE); UROBILINOGEN,URINE NORMAL (NORMAL)
[2017-08-20 09:55] LABS: HEMOGLOBIN 12.8 G/DL (11.5-16.0); MEAN PLATELET VOLUME 9.8 FL (7.4-10.4); RED BLOOD COUNT 4.42 10^6/uL (4.35-5.85); RED CELL DISTRIBUTION WIDTH 13.1 % (10.0-14.5); WHITE BLOOD COUNT 5.3 10^3/uL (4.3-11.0)
[2017-08-20 10:05] LABS: BACTERIA,URINE MODERATE /HPF
[2017-08-20 10:17] LABS: ALANINE AMINOTRANSFERASE 15 U/L (0-55); ALBUMIN 4.1 GM/DL (3.2-4.5); ALKALINE PHOSPHATASE 77 U/L (40-136); BILIRUBIN,TOTAL 0.6 MG/DL (0.1-1.0); BUN/CREATININE RATIO 18; CALCIUM 9.2 MG/DL (8.5-10.1); CARBON DIOXIDE 25 MMOL/L (21-32); CHLORIDE 110 MMOL/L (98-107); CREATININE SERUM 0.82 MG/DL (0.60-1.30); GFR ESTIMATED > 60; GLUCOSE 94 MG/DL (70-105); POTASSIUM 3.5 MMOL/L (3.6-5.0); SODIUM 142 MMOL/L (135-145)
== END ==
LOC: LAB 08:18
PROVIDERS: ATTEND Internal Medicine
DX: R35.0 Frequency of micturition (principal); Z79.899 Other long term (current) drug therapy
CPT/HCPCS: 80053; 81000; 87088

== ENCOUNTER → 2017-12-04 | Outpatient (CLI) | payer OTHER ==
--- NOTE | 2017-12-04 17:45 | Diagnostic Imaging Report ---
PROCEDURE: MRI right joint upper extremity without contrast. TECHNIQUE: Multiplanar, multisequence [id number] MRI of the right upper extremity was accomplished. INDICATION: Shoulder pain. COMPARISON: There are no prior studies available for comparison. FINDINGS: On the T2 fat-saturated coronal series, there is no abnormal signal arising from the rotator cuff to suggest a tear. The supraspinatus muscle is not retracted or bunched. However, there is hypertrophy of the acromioclavicular joint, and this does result in mild narrowing of the outlet for the supraspinatus muscle. In addition, there is a trace amount of fluid in the subacromial-subdeltoid bursa. This does suggest that there is an element of mild bursitis present. The biceps tendon and the subscapularis tendon are intact. The labrum is thinned posteriorly and may be torn on a degenerative basis. There is no acute labral tear visualized. There is no sign of a joint effusion. There is no abnormal signal arising from the osseous structures to suggest bone edema or a fracture. IMPRESSION: 1. There is no evidence for a tear of the rotator cuff. 2. There is hypertrophy of the acromioclavicular joint, and this does result in mild narrowing of the outlet for the supraspinatus muscle. 3. The trace amount of fluid in the subacromial-subdeltoid bursa does suggest that there is an element of mild bursitis present. 4. The labrum is thinned posteriorly and most likely torn on a degenerative basis. 5. There is no sign of an acute bony abnormality. Dictated by: Dictated on workstation # [id number]
== END ==
LOC: RAD 16:45
PROVIDERS: ATTEND Nurse Practitioner Family
DX: M25.811 Other specified joint disorders, right shoulder (principal); M62.89 Other specified disorders of muscle; M25.511 Pain in right shoulder
CPT/HCPCS: 73221

== ENCOUNTER → 2018-03-17 | Outpatient (CLI) | payer OTHER ==
[2018-03-17 13:16] LABS: BASOPHILS # (AUTO) 0.1 10^3/uL (0.0-0.1); BASOPHILS % (AUTO) 1 % (0-10); EOSINOPHILS # (AUTO) 0.1 10^3/uL (0.0-0.3); EOSINOPHILS % (AUTO) 1 % (0-10); HEMATOCRIT 40 % (35-52); HEMOGLOBIN 12.3 G/DL (11.5-16.0); LYMPHOCYTES # (AUTO) 2.6 X 10^3 (1.0-4.0); LYMPHOCYTES % (AUTO) 30 % (12-44); MEAN CORPUSCULAR HEMOGLOBIN 26 PG (25-34); MEAN CORPUSCULAR HGB CONC 31 G/DL (32-36); MEAN CORPUSCULAR VOLUME 82 FL (80-99); MEAN PLATELET VOLUME 9.8 FL (7.4-10.4); MONOCYTES # (AUTO) 0.7 X 10^3 (0.0-1.0); MONOCYTES % (AUTO) 8 % (0-12); NEUTROPHILS # (AUTO) 5.1 X 10^3 (1.8-7.8); NEUTROPHILS % (AUTO) 60 % (42-75); PLATELET COUNT 391 10^3/uL (130-400); RED CELL DISTRIBUTION WIDTH 14.5 % (10.0-14.5); WHITE BLOOD COUNT 8.5 10^3/uL (4.3-11.0)
[2018-03-17 13:21] LABS: BILIRUBIN,URINE NEGATIVE (NEGATIVE); CLARITY,URINE CLEAR; COLOR,URINE YELLOW; GLUCOSE, URINE (UA) NEGATIVE (NEGATIVE); KETONES,URINE NEGATIVE (NEGATIVE); LEUKOCYTE ESTERASE ,URINE NEGATIVE (NEGATIVE); NITRITE,URINE NEGATIVE (NEGATIVE); PH,URINE 5 (5-9); PROTEIN,URINE 2+ (NEGATIVE); UROBILINOGEN,URINE 1 MG/DL (NORMAL)
[2018-03-17 13:36] LABS: ALBUMIN 4.4 GM/DL (3.2-4.5); BILIRUBIN,TOTAL 0.4 MG/DL (0.1-1.0); CALCIUM 9.3 MG/DL (8.5-10.1); CREATININE SERUM 0.95 MG/DL (0.60-1.30); MAGNESIUM 2.3 MG/DL (1.8-2.4); POTASSIUM 3.7 MMOL/L (3.6-5.0)
[2018-03-17 13:39] LABS: WBC,URINE RARE /HPF
[2018-03-17 13:40] LABS: BACTERIA,URINE MODERATE /HPF; CALCIUM OXALATE CRYSTALS,UR FEW /LPF
--- NOTE | 2018-03-17 19:29 | Diagnostic Imaging Report ---
INDICATION: Right breast nodule. EXAMINATION: Digital mammogram bilateral diagnostic with 3-D tomosynthesis. The current study was also evaluated with a Computer Aided Detection (CAD) system. This study was compared to the prior exam of 04/29/2016 and 08/15/2011. At this time, the patient does complain of pain and a lump in the medial aspect of the right breast. A marker was placed in the area of concern. There is no primary or secondary sign of malignancy in this area. Even so, ultrasound would be recommended for further study. The breasts are predominantly fatty. The postsurgical changes involving the upper-outer aspect of left breast seen previously are again evident and no different. There is no primary or secondary sign of malignancy noted. IMPRESSION: 1. There is no evidence of malignancy. 2. Ultrasound is pending for further evaluation of the right breast. ACR BI-RADS Category 0: Incomplete. (Needs additional imaging evaluation). Result letter will be mailed to the patient. Note: At least 10% of breast cancer is not imaged by mammography. Dictated on workstation # [id number]
--- NOTE | 2018-03-17 19:41 | Diagnostic Imaging Report ---
EXAMINATION: Ultrasound of the right breast. INDICATION: Right breast mass. FINDINGS: The diagnostic mammogram performed earlier today failed to show any sign of a mass in the area of the patient's palpable abnormality in the medial aspect of the right breast. The ultrasound examination in this area is unremarkable for a discrete solid or cystic mass. It may be that the palpable abnormality in question is related to fibroglandular tissue alone. Clinical followup is recommended. IMPRESSION: There is no mass or cyst in the medial aspect of the right breast to correspond to patient's palpable abnormality. Clinical followup is recommended. ACR BI-RADS Category 1: Negative. Dictated on workstation # [id number]
== END ==
LOC: RAD 12:57
PROVIDERS: ATTEND Internal Medicine
DX: N63.10 Unspecified lump in the right breast, unspecified quadrant (principal); M79.7 Fibromyalgia
CPT/HCPCS: 36415; 77066; 80053; 81000; 82607; 83735; 85025; 86038; 86060

== ENCOUNTER → 2018-06-02 | Outpatient (CLI) | payer OTHER ==
[2018-06-02 11:46] LABS: CHOLESTEROL 184 MG/DL (< 200); HDL CHOLESTEROL 51 MG/DL (40-60); TRIGLYCERIDES 128 MG/DL (<150); VLDL CHOLESTEROL 26 MG/DL (5-40)
== END ==
LOC: LAB 11:02
PROVIDERS: ATTEND Internal Medicine Cardiovascular Disease
DX: I25.10 Atherosclerotic heart disease of native coronary artery without angina pectoris (principal); I10 Essential (primary) hypertension; E78.2 Mixed hyperlipidemia; E11.9 Type 2 diabetes mellitus without complications; R42 Dizziness and giddiness; G47.33 Obstructive sleep apnea (adult) (pediatric)
CPT/HCPCS: 36415; 80061

== ENCOUNTER → 2018-06-02 | Outpatient (CLI) | payer OTHER ==
[2018-06-02 11:25] LABS: HEMOGLOBIN 10.8 G/DL (11.5-16.0); MEAN PLATELET VOLUME 9.5 FL (7.4-10.4); RED CELL DISTRIBUTION WIDTH 15.6 % (10.0-14.5)
[2018-06-02 11:46] LABS: ALANINE AMINOTRANSFERASE 16 U/L (0-55); ALBUMIN 3.9 GM/DL (3.2-4.5); ALKALINE PHOSPHATASE 84 U/L (40-136); BILIRUBIN,TOTAL 0.3 MG/DL (0.1-1.0); BUN/CREATININE RATIO 20; CALCIUM 8.9 MG/DL (8.5-10.1); CARBON DIOXIDE 23 MMOL/L (21-32); CHLORIDE 112 MMOL/L (98-107); CHOLESTEROL 185 MG/DL (< 200); CREATININE SERUM 0.84 MG/DL (0.60-1.30); GFR ESTIMATED > 60; GLUCOSE 98 MG/DL (70-105); SODIUM 142 MMOL/L (135-145)
== END ==
LOC: LAB 10:56
PROVIDERS: ATTEND Nurse Practitioner Family
DX: E78.5 Hyperlipidemia, unspecified (principal); A44.8 Other forms of bartonellosis
CPT/HCPCS: 36415; 80053; 82465; 85027; 86618; 86666; 86668; 86757

== ENCOUNTER → 2018-06-08 | Outpatient (CLI) | payer OTHER | LOC: CARD 09:58 | PROVIDERS: ATTEND Physician Assistant | DX: I25.10 Atherosclerotic heart disease of native coronary artery without angina pectoris (principal); R42 Dizziness and giddiness; E13.9 Other specified diabetes mellitus without complications; I10 Essential (primary) hypertension; E78.2 Mixed hyperlipidemia; G47.33 Obstructive sleep apnea (adult) (pediatric) | CPT/HCPCS: 93306 ==

== ENCOUNTER → 2018-06-09 | Outpatient (CLI) | payer OTHER ==
[~2018-06-09] VITALS: Ht 154.9 cm; Wt 75.3 kg
[~2018-06-09] MED LIST changes: +CATHETER FLUSH 10 ML SYR IV PRN; +REGADENOSON 0.4 MG/5 ML SYR (LEXISCAN) IV ONE
--- NOTE | 2018-06-10 02:59 | STRESS TEST ---
DATE OF SERVICE: 06/09/2018 LEXISCAN MYOVIEW STRESS TEST REPORT REFERRING PHYSICIAN: Dr. Rojo. REFERRING PHYSICIAN: Baseline heart rate 59. Baseline EKG is sinus rhythm with no ischemic changes. SUMMARY: The patient was injected with 10.06 mCi of technetium-99 Myoview and the resting images were obtained. Then, the patient received 0.4 mg of Lexiscan followed by 28.7 mCi of technetium-99 Myoview. Throughout the test, there were no EKG changes. The resting and stressed images were reviewed and compared in the short axis, horizontal long axis, and vertical long axis views. Review of the images showed good radiotracer uptake with no significant ischemia or infarction, breast attenuation, typical female pattern, SSS is 1, SDS 1, TID value 1.0. On the gated images, the left ventricle appeared to be in normal size with normal contractility. Calculated ejection fraction 57%. CONCLUSION: 1. The patient tolerated Lexiscan well. 2. Typical female pattern with no significant ischemia or infarction on SPECT images. 3. Normal left ventricular size with normal contractility. Calculated ejection fraction 57%. Job ID: [id number] DocumentID: [id number] Dictated Date: 06/09/2018 21:07:45 Morning Caregiver Date: 06/10/2018 02:58:37 Dictated By: COLTON IVEY MD
== END ==
LOC: CARD 11:36
PROVIDERS: ATTEND Physician Assistant
DX: I25.10 Atherosclerotic heart disease of native coronary artery without angina pectoris (principal); I10 Essential (primary) hypertension; E78.2 Mixed hyperlipidemia; E11.9 Type 2 diabetes mellitus without complications; R42 Dizziness and giddiness; G47.33 Obstructive sleep apnea (adult) (pediatric)
CPT/HCPCS: 78452; 93017

== ENCOUNTER 2018-07-16 10:59 | Outpatient (RCR) | payer OTHER ==
[~2018-07-16 10:59] MED LIST changes: +OMEP20CA13 PO
[2018-07-16 12:52] LABS: BILIRUBIN,URINE NEGATIVE (NEGATIVE); CLARITY,URINE CLEAR; COLOR,URINE YELLOW; GLUCOSE, URINE (UA) NEGATIVE (NEGATIVE); KETONES,URINE NEGATIVE (NEGATIVE); LEUKOCYTE ESTERASE ,URINE 1+ (NEGATIVE); NITRITE,URINE NEGATIVE (NEGATIVE); PH,URINE 7 (5-9); PROTEIN,URINE 2+ (NEGATIVE); UROBILINOGEN,URINE 1 MG/DL (NORMAL)
[2018-07-16 12:59] LABS: BACTERIA,URINE MODERATE /HPF; SQUAMOUS EPITHELIAL CELL,UR 25-50 /HPF
[2018-07-17 14:34] LABS: PROTEIN URINE MG/DL < 6 MG/DL (6-12)
[2018-07-17 15:07] LABS: TOTAL VOLUME,URINE 1400 ML
== END 2018-10-14 | disposition home or self-care (01) ==
LOC: LAB 10:59
PROVIDERS: ATTEND Nurse Practitioner Family
DX: R80.9 Proteinuria, unspecified (principal)
CPT/HCPCS: 81000; 84156; 87088

== ENCOUNTER → 2018-07-16 | Outpatient (CLI) | payer OTHER ==
[~2018-07-16] MED LIST changes: -CATHETER FLUSH 10 ML SYR IV PRN; -REGADENOSON 0.4 MG/5 ML SYR (LEXISCAN) IV ONE
[2018-07-16 12:49] LABS: HEMOGLOBIN 11.6 G/DL (11.5-16.0); MEAN PLATELET VOLUME 10.1 FL (7.4-10.4); RED CELL DISTRIBUTION WIDTH 15.3 % (10.0-14.5); WHITE BLOOD COUNT 6.9 10^3/uL (4.3-11.0)
[2018-07-16 13:04] LABS: ALANINE AMINOTRANSFERASE 12 U/L (0-55); ALBUMIN 4.3 GM/DL (3.2-4.5); ALKALINE PHOSPHATASE 99 U/L (40-136); BILIRUBIN,TOTAL 0.5 MG/DL (0.1-1.0); BUN/CREATININE RATIO 18; CALCIUM 9.3 MG/DL (8.5-10.1); CARBON DIOXIDE 28 MMOL/L (21-32); CHLORIDE 108 MMOL/L (98-107); CREATININE SERUM 0.88 MG/DL (0.60-1.30); GFR ESTIMATED > 60; GLUCOSE 94 MG/DL (70-105); POTASSIUM 3.7 MMOL/L (3.6-5.0); SODIUM 140 MMOL/L (135-145); TOTAL PROTEIN 7.8 GM/DL (6.4-8.2)
[2018-07-16 13:26] LABS: FREE T4 (FREE THYROXINE) 0.93 NG/DL (0.70-1.48)
== END ==
LOC: LAB 11:00
PROVIDERS: ATTEND Specialist
DX: R20.9 Unspecified disturbances of skin sensation (principal)
CPT/HCPCS: 36415; 80053; 82175; 82595; 82607; 82746; 83036; 83090; 83655; 83825; 83921; 84155; 84165; 84207; 84425; 84439; 84443; 85027; 85610; 85613; 85652; 85705; 85730; 86021; 86141; 86146; 86147; 86334; 86430

== ENCOUNTER 2018-08-03 19:34 | Emergency (ER) | payer OTHER ==
[~2018-08-03] VITALS: Ht 157.5 cm; Wt 72.6 kg
[~2018-08-03 19:34] MED LIST changes: -OMEP20CA13 PO
[2018-08-03] MEDS ORDERED: ASPIRIN 81 MG CHEW (CHILDREN'S ASA) PO ONE (19:45)
[2018-08-03] MEDS ORDERED: meTOprolol 5 MG/5 ML (LOPRESSOR) VIAL IV ONE (19:45)
[2018-08-03] MEDS ORDERED: NITROGLYCERIN 0.4 MG SL TABS BTL 25'S SL PRN (19:45)
--- NOTE | 2018-08-03 20:02 | ED Chest Pain ---
General Chief Complaint: Chest Pain Stated Complaint: CHEST PAIN Source: patient Exam Limitations: no limitations History of Present Illness Date Seen by Provider: Aug 03, 2018 Time Seen by Provider: 20:00 Initial Comments To ER per private vehicle with reports to ER by private vehicle from home with reports of left-sided sharp chest pain that began while she was at rest sitting on the couch watching TV. The pain is worsened by movement and deep breathing so she took shallow breaths. The pain is completely gone at this time. No nausea vomiting or sweating with this. She does have a history of one coronary stent, follows with Dr. Chun. The pain started 45 minutes prior to presentation, lasted 30 minutes before resolving spontaneously. Timing/Duration: 1 hour Severity/Quality: moderate Radiation: no radiation ASA po EXTERNAL GRINDER TENDER: No NTG SL EXTERNAL GRINDER TENDER: No Associated Symptoms: No shortness of breath Allergies and Home Medications Allergies Coded Allergies: erythromycin base (Verified Allergy, Intermediate, HIVES, 06/23/16) Home Medications Atorvastatin Calcium 40 Mg Tablet, 40 MG PO DAILY, (Reported) Bupropion HCl 150 Mg Tablet.er, 150 MG PO DAILY, (Reported) Carvedilol 3.125 Mg Tablet, 3.125 MG PO BID, (Reported) Cholecalciferol (Vitamin D3) 50,000 Unit Capsule, 50,000 UNIT PO WEEK, (Report ed) Hydrocodone Bit/Acetaminophen 1 Each Tablet, 1-2 EACH PO Q6H PRN for BREAKTHROUGH PAIN Prescribed by: AMA VILLAVICENCIO on 12/30/16 3412 Loratadine 10 Mg Tablet, 10 MG PO DAILY, (Reported) Metaxalone 800 Mg Tablet, 800 MG PO DAILY, (Reported) Metformin HCl 500 Mg Tab.er.24h, 500 MG PO DAILY WITH MEAL, (Reported) Omeprazole 20 Mg Capsule.dr, 20 MG PO DAILY, (Reported) Ondansetron HCl 4 Mg Tab, 4 MG PO PRN, (Reported) Potassium Chloride 20 Meq Tablet.er, 20 MEQ PO DAILY, (Reported) Topiramate 25 Mg Tablet, 25 MG PO HS, (Reported) Torsemide 20 Mg Tablet, 20 MG PO DAILY, (Reported) Patient Home Medication List Home Medication List Reviewed: Yes Review of Systems Review of Systems Constitutional: see HPI EENTM: No Symptoms Reported Respiratory: No Symptoms Reported Cardiovascular: See HPI, Chest Pain Gastrointestinal: No Symptoms Reported Genitourinary: No Symptoms Reported Musculoskeletal: no symptoms reported Skin: no symptoms reported Psychiatric/Neurological: No Symptoms Reported Endocrine: No Symptoms Reported Hematologic/Lymphatic: No Symptoms Reported Past [id number]-Htsszd Hx Patient Social History Recent Foreign Travel: No Contact w/Someone Who Travel: No Recent Hopitalizations: Yes (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) Immunizations Up To Date Tetanus Booster (TDap): Unknown Date of Influenza Vaccine: Nov 24, 2016 Seasonal Allergies Seasonal Allergies: Yes Past Medical History Surgeries: Yes (KNEE SURGERY, CRANIOTOMY ) Breast, Coronary Stent, Gallbladder, Hysterectomy, Orthopedic Respiratory: No Cardiac: Yes (STENT 2009) Coronary Artery Disease, High Cholesterol, Hypertension Neurological: Yes (HX SEIZURES-NONE SINCE CRANIOTOMY) Brain Tumor, Headaches /Migraines, Seizure Disorder Reproductive Disorders: No 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 0.0oz. 75.185457ry; 31.4 BMI Method:Stated General Appearance: No Apparent Distress, WD/WN HEENT: PERRL/EOMI, TMs Normal Respiratory: No Accessory Muscle Use, No Respiratory Distress Cardiovascular: Regular Rate, Rhythm, Normal Peripheral Pulses Gastrointestinal: Non Tender, Soft Neurologic/Psychiatric: Alert, Oriented x3 Skin: Normal Color, Warm/Dry Other comments EKG does not show any ST segment changes. Progress/Results/Core Measures Results/Orders Lab Results Laboratory Tests Test 08/03/18 19:55 08/03/18 21:57 Range/Units White Blood Count 8.4 4.3-11.0 10^3/uL Red Blood Count 4.16 L 4.35-5.85 10^6/uL Hemoglobin 10.5 L 11.5-16.0 G/DL Hematocrit 34 L 35-52 % Mean Corpuscular Volume 81 80-99 FL Mean Corpuscular Hemoglobin 25 25-34 PG Mean Corpuscular Hemoglobin Concent 31 L 32-36 G/DL Red Cell Distribution Width 15.0 H 10.0-14.5 % Platelet Count 383 130-400 10^3/uL Mean Platelet Volume 9.3 7.4-10.4 FL Neutrophils (%) (Auto) 60 42-75 % Lymphocytes (%) (Auto) 32 12-44 % Monocytes (%) (Auto) 6 0-12 % Eosinophils (%) (Auto) 2 0-10 % Basophils (%) (Auto) 1 0-10 % Neutrophils # (Auto) 5.0 1.8-7.8 X 10^3 Lymphocytes # (Auto) 2.7 1.0-4.0 X 10^3 Monocytes # (Auto) 0.5 0.0-1.0 X 10^3 Eosinophils # (Auto) 0.2 0.0-0.3 10^3/uL Basophils # (Auto) 0.0 0.0-0.1 10^3/uL Prothrombin Time 12.3 12.2-14.7 SEC INR Comment 0.9 0.8-1.4 Activated Partial Thromboplast Time 33 24-35 SEC Sodium Level 141 135-145 MMOL/L Potassium Level 3.5 L 3.6-5.0 MMOL/L Chloride Level 111 H 98-107 MMOL/L Carbon Dioxide Level 18 L 21-32 MMOL/L Anion Gap 12 5-14 MMOL/L Blood Urea Nitrogen 16 7-18 MG/DL Creatinine 0.84 0.60-1.30 MG/DL Estimat Glomerular Filtration Rate > 60 BUN/Creatinine Ratio 19 Glucose Level 102 70-105 MG/DL Calcium Level 8.7 8.5-10.1 MG/DL Corrected Calcium 8.8 8.5-10.1 MG/DL Magnesium Level 2.3 1.8-2.4 MG/DL Total Bilirubin 0.2 0.1-1.0 MG/DL Aspartate Amino Transf (AST/SGOT) 17 5-34 U/L Alanine Aminotransferase (ALT/SGPT) 14 0-55 U/L Alkaline Phosphatase 87 40-136 U/L Total Creatine Kinase 91 29-168 U/L Creatine Kinase MB 0.8 <6.6 NG/ML Myoglobin 23.0 10.0-92.0 NG/ML Troponin I < 0.028 < 0.028 <0.028 NG/ML B-Type Natriuretic Peptide 41.3 <100.0 PG/ML Total Protein 7.1 6.4-8.2 GM/DL Albumin 3.9 3.2-4.5 GM/DL Amylase Level 50 25-125 U/L Lipase 71 8-78 U/L My Orders Orders - DOUG ROGERS APRN Metoprolol Tartrate Injection (Lopressor (08/03/18 19:45) Antacid Suspension (Mylanta Suspension (08/03/18 21:15) Lidocaine 2% Viscous 15 Ml (Xylocaine Vi (08/03/18 21:15) Troponin I (08/03/18 21:48) Medications Given in ED Current Medications Medications Dose Ordered Sig/Leonor Route Start Time Stop Time Status Last Admin Dose Admin Al Hydrox/Mg Hydrox/Simethicone 30 ml ONCE ONCE PO 08/03/18 21:15 08/03/18 21:16 DC 08/03/18 21:21 30 ML Aspirin 324 mg ONCE ONCE PO 08/03/18 19:45 08/03/18 19:46 DC 08/03/18 20:05 324 MG Lidocaine HCl 15 ml ONCE ONCE PO 08/03/18 21:15 08/03/18 21:16 DC 08/03/18 21:21 15 ML Departure Communication (Admissions) 2042-discussed the case with Dr. Chun. Recommends repeat troponin at the 2 hour lizzie, is still negative discharge home. Impression Primary Impression: Chest pain Qualified Codes: R07.1 - Chest pain on breathing Disposition: 01 HOME, SELF-CARE Condition: Stable Departure-Patient Inst. Decision time for Depature: 22:35 Referrals: DAVIDA BAIRD DO (PCP) Primary Care Physician MEKA BAIRD DNP (Family) Primary Care Physician Patient Instructions: Chest Pain That Is Not Caused by the Heart (DC) Add. Discharge Instructions: 1. Follow-up with Dr. Chun next week 2. Return to ER for any concerns. All discharge instructions reviewed with patient and/or family. Voiced understanding. DOUG ROGERS APRN Aug 03, 2018 20:02
[2018-08-03 20:11] LABS: BASOPHILS % (AUTO) 1 % (0-10); EOSINOPHILS # (AUTO) 0.2 10^3/uL (0.0-0.3); EOSINOPHILS % (AUTO) 2 % (0-10); HEMATOCRIT 34 % (35-52); HEMOGLOBIN 10.5 G/DL (11.5-16.0); LYMPHOCYTES # (AUTO) 2.7 X 10^3 (1.0-4.0); LYMPHOCYTES % (AUTO) 32 % (12-44); MEAN CORPUSCULAR HEMOGLOBIN 25 PG (25-34); MEAN CORPUSCULAR HGB CONC 31 G/DL (32-36); MEAN CORPUSCULAR VOLUME 81 FL (80-99); MEAN PLATELET VOLUME 9.3 FL (7.4-10.4); MONOCYTES # (AUTO) 0.5 X 10^3 (0.0-1.0); MONOCYTES % (AUTO) 6 % (0-12); NEUTROPHILS % (AUTO) 60 % (42-75); PLATELET COUNT 383 10^3/uL (130-400); WHITE BLOOD COUNT 8.4 10^3/uL (4.3-11.0)
[2018-08-03 20:23] LABS: INR 0.9 (0.8-1.4); PROTHROMBIN TIME PATIENT 12.3 SEC (12.2-14.7)
--- NOTE | 2018-08-03 20:29 | Diagnostic Imaging Report ---
INDICATION: Chest pain Portable chest at 8:16 p.m. Heart size and pulmonary vascularity are normal. Lungs are clear. There are no effusions or pneumothoraces. IMPRESSION: Negative chest Dictated by: Dictated on workstation # [id number]
[2018-08-03 20:31] LABS: ALANINE AMINOTRANSFERASE 14 U/L (0-55); ALBUMIN 3.9 GM/DL (3.2-4.5); ALKALINE PHOSPHATASE 87 U/L (40-136); AMYLASE 50 U/L (25-125); BILIRUBIN,TOTAL 0.2 MG/DL (0.1-1.0); BUN/CREATININE RATIO 19; CALCIUM 8.7 MG/DL (8.5-10.1); CARBON DIOXIDE 18 MMOL/L (21-32); CHLORIDE 111 MMOL/L (98-107); CREATINE KINASE 91 U/L (29-168); CREATININE SERUM 0.84 MG/DL (0.60-1.30); GFR ESTIMATED > 60; GLUCOSE 102 MG/DL (70-105); LIPASE 71 U/L (8-78); MAGNESIUM 2.3 MG/DL (1.8-2.4); POTASSIUM 3.5 MMOL/L (3.6-5.0); SODIUM 141 MMOL/L (135-145); TOTAL PROTEIN 7.1 GM/DL (6.4-8.2)
[2018-08-03 20:38] LABS: CREATINE KINASE MB 0.8 NG/ML (<6.6)
[2018-08-03] MEDS ORDERED: LIDOCAINE 2% VISCOUS 15 ML UDC PO ONE (21:15)
[2018-08-03] MEDS ORDERED: ANTACID SUSP 30 ML UDC (MYLANTA) PO ONE (21:15)
[2018-08-03 22:39] VITALS: BP 138/88
== END 2018-08-03 22:47 | disposition home or self-care (01) ==
LOC: EDUNIT# 19:34 → ER 19:36
DX: R07.89 Other chest pain (principal); I25.10 Atherosclerotic heart disease of native coronary artery without angina pectoris; E78.00 Pure hypercholesterolemia, unspecified; I10 Essential (primary) hypertension; G43.909 Migraine, unspecified, not intractable, without status migrainosus; G40.909 Epilepsy, unspecified, not intractable, without status epilepticus; K21.9 Gastro-esophageal reflux disease without esophagitis; E03.9 Hypothyroidism, unspecified; F41.9 Anxiety disorder, unspecified; E11.9 Type 2 diabetes mellitus without complications; Z85.828 Personal history of other malignant neoplasm of skin; Z91.041 Radiographic dye allergy status; Z79.84 Long term (current) use of oral hypoglycemic drugs; Z98.890 Other specified postprocedural states; Z95.5 Presence of coronary angioplasty implant and graft; Z90.710 Acquired absence of both cervix and uterus
CPT/HCPCS: 36415; 71045; 80053; 82150; 82550; 82553; 83690; 83735; 83874; 83880; 84484; 85025; 85610; 85730; 93005; 93041

== ENCOUNTER → 2018-10-19 | Outpatient (CLI) | payer OTHER ==
[~2018-10-19] MED LIST changes: +OMEP20CA13 PO
[2018-10-19 12:03] LABS: BILIRUBIN,URINE NEGATIVE (NEGATIVE); CLARITY,URINE CLEAR; COLOR,URINE YELLOW; GLUCOSE, URINE (UA) NEGATIVE (NEGATIVE); KETONES,URINE NEGATIVE (NEGATIVE); LEUKOCYTE ESTERASE ,URINE NEGATIVE (NEGATIVE); NITRITE,URINE NEGATIVE (NEGATIVE); PH,URINE 5 (5-9); PROTEIN,URINE NEGATIVE (NEGATIVE); UROBILINOGEN,URINE NORMAL (NORMAL)
[2018-10-19 12:04] LABS: BASOPHILS % (AUTO) 1 % (0-10); EOSINOPHILS # (AUTO) 0.2 10^3/uL (0.0-0.3); EOSINOPHILS % (AUTO) 3 % (0-10); HEMATOCRIT 36 % (35-52); LYMPHOCYTES % (AUTO) 29 % (12-44); MEAN CORPUSCULAR HEMOGLOBIN 25 PG (25-34); MEAN CORPUSCULAR HGB CONC 31 G/DL (32-36); MEAN CORPUSCULAR VOLUME 81 FL (80-99); MEAN PLATELET VOLUME 9.9 FL (7.4-10.4); MONOCYTES # (AUTO) 0.5 X 10^3 (0.0-1.0); MONOCYTES % (AUTO) 7 % (0-12); NEUTROPHILS # (AUTO) 4.3 X 10^3 (1.8-7.8); NEUTROPHILS % (AUTO) 61 % (42-75); PLATELET COUNT 361 10^3/uL (130-400)
[2018-10-19 12:16] LABS: ALBUMIN 4.1 GM/DL (3.2-4.5); BUN/CREATININE RATIO 17; CALCIUM 9.2 MG/DL (8.5-10.1); CARBON DIOXIDE 25 MMOL/L (21-32); CHLORIDE 110 MMOL/L (98-107); CREATININE SERUM 0.87 MG/DL (0.60-1.30); GFR ESTIMATED > 60; GLUCOSE 96 MG/DL (70-105); PHOSPHORUS 3.9 MG/DL (2.3-4.7); POTASSIUM 3.7 MMOL/L (3.6-5.0); SODIUM 143 MMOL/L (135-145)
[2018-10-19 12:17] LABS: BACTERIA,URINE TRACE /HPF; SQUAMOUS EPITHELIAL CELL,UR 0-2 /HPF
== END ==
LOC: LAB 11:45
PROVIDERS: ATTEND Nurse Practitioner Family
DX: E78.5 Hyperlipidemia, unspecified (principal)
CPT/HCPCS: 36415; 80069; 81000; 82565; 84520; 85025

== ENCOUNTER → 2018-12-28 | Outpatient (CLI) | payer OTHER | LOC: LAB 10:40 | PROVIDERS: ATTEND Internal Medicine Nephrology | DX: I12.9 Hypertensive chronic kidney disease with stage 1 through stage 4 chronic kidney disease, or unspecified chronic kidney disease (principal); N18.2 Chronic kidney disease, stage 2 (mild); D63.1 Anemia in chronic kidney disease | CPT/HCPCS: 36415; 83520; 85652; 86021; 86038; 86039; 86141; 86160; 86225; 86235; 86431 ==

== ENCOUNTER → 2019-01-03 | Outpatient (CLI) | payer OTHER ==
--- NOTE | 2019-01-03 15:09 | Diagnostic Imaging Report ---
PROCEDURE: US Renal Bilateral. TECHNIQUE: Multiple real-time grayscale images were obtained over the kidneys in various projections bilaterally. INDICATION: Chronic kidney disease. FINDINGS: The right kidney measured 10.2 cm. Its cortical thickness and echotexture was unremarkable and showed no solid or cystic mass. No stone. The left kidney measured 10.2 cm. It has a unilocular anechoic benign simple cyst measuring 1.3 cm at its lower pole laterally. Its cortical thickness and echotexture was otherwise normal. No stone or hydronephrosis. The urinary bladder appeared normal. IMPRESSION: Normal renal volumes. Simple benign left renal cyst. Unobstructed kidneys and urinary bladder appeared otherwise normal. Dictated by: Dictated on workstation # [id number]
== END ==
LOC: RAD 13:47
PROVIDERS: ATTEND Internal Medicine Nephrology
DX: N18.2 Chronic kidney disease, stage 2 (mild) (principal); N28.1 Cyst of kidney, acquired
CPT/HCPCS: 76770

== ENCOUNTER → 2019-02-07 | Outpatient (CLI) | payer OTHER ==
[2019-02-07 13:28] LABS: ALANINE AMINOTRANSFERASE 14 U/L (0-55); ALBUMIN 4.1 GM/DL (3.2-4.5); ALKALINE PHOSPHATASE 91 U/L (40-136); BILIRUBIN,TOTAL 0.2 MG/DL (0.1-1.0); BUN/CREATININE RATIO 17; CARBON DIOXIDE 24 MMOL/L (21-32); CHLORIDE 109 MMOL/L (98-107); CREATININE SERUM 0.89 MG/DL (0.60-1.30); GFR ESTIMATED > 60; GLUCOSE 96 MG/DL (70-105); POTASSIUM 3.7 MMOL/L (3.6-5.0); SODIUM 143 MMOL/L (135-145); TOTAL PROTEIN 7.5 GM/DL (6.4-8.2)
== END ==
LOC: LAB 12:38
PROVIDERS: ATTEND Nurse Practitioner Family
DX: R79.89 Other specified abnormal findings of blood chemistry (principal)
CPT/HCPCS: 36415; 80053

== ENCOUNTER → 2019-05-11 | Outpatient (CLI) | payer OTHER ==
[~2019-05-11] MED LIST changes: +METF500T19 PO; -OMEP20CA13 PO; +OMEP20CA18 PO
[2019-05-11 15:41] LABS: HEMOGLOBIN 11.2 G/DL (11.5-16.0); MEAN PLATELET VOLUME 9.7 FL (7.4-10.4)
--- NOTE | 2019-05-11 15:47 | Diagnostic Imaging Report ---
EXAMINATION: Chest, 2 views. HISTORY: Influenza. Chronic fatigue. COMPARISON: Chest radiograph on 08/03/2018. FINDINGS: The lung volumes are normal. No focal consolidation is seen. No large pleural effusion or pneumothorax is seen. The cardiomediastinal silhouette is normal in size and contour. There is calcified aortic atherosclerotic plaque. No acute osseous abnormality is seen. IMPRESSION: No acute pleuroparenchymal process. Dictated by: Dictated on workstation # [id number]
[2019-05-11 15:56] LABS: ALANINE AMINOTRANSFERASE 15 U/L (0-55); ALBUMIN 4.3 GM/DL (3.2-4.5); ALKALINE PHOSPHATASE 101 U/L (40-136); BILIRUBIN,TOTAL 0.3 MG/DL (0.1-1.0); BUN/CREATININE RATIO 19; CALCIUM 9.6 MG/DL (8.5-10.1); CARBON DIOXIDE 24 MMOL/L (21-32); CHLORIDE 107 MMOL/L (98-107); CREATININE SERUM 0.86 MG/DL (0.60-1.30); GFR ESTIMATED > 60; GLUCOSE 104 MG/DL (70-105); SODIUM 142 MMOL/L (135-145); TOTAL PROTEIN 7.8 GM/DL (6.4-8.2)
[2019-05-12 15:57] LABS: RSV PCR TEST Not Detected (Not Detected)
== END ==
LOC: RAD 14:44
PROVIDERS: ATTEND Nurse Practitioner Family
DX: J11.1 Influenza due to unidentified influenza virus with other respiratory manifestations (principal); R89.9 Unspecified abnormal finding in specimens from other organs, systems and tissues; R53.82 Chronic fatigue, unspecified
CPT/HCPCS: 36415; 71046; 80053; 85027; 86738; 87631; 87635

== ENCOUNTER → 2019-10-07 | Outpatient (CLI) | payer OTHER ==
[~2019-10-07] MED LIST changes: +METF-865 PO; -METF500T19 PO
[2019-10-07 12:53] LABS: BASOPHILS % (AUTO) 1 % (0-10); EOSINOPHILS # (AUTO) 0.1 10^3/uL (0.0-0.3); EOSINOPHILS % (AUTO) 2 % (0-10); HEMATOCRIT 37 % (35-52); HEMOGLOBIN 11.7 G/DL (11.5-16.0); LYMPHOCYTES % (AUTO) 24 % (12-44); MEAN CORPUSCULAR HEMOGLOBIN 26 PG (25-34); MEAN CORPUSCULAR HGB CONC 32 G/DL (32-36); MEAN CORPUSCULAR VOLUME 80 FL (80-99); MEAN PLATELET VOLUME 10.3 FL (7.4-10.4); MONOCYTES # (AUTO) 0.7 X 10^3 (0.0-1.0); MONOCYTES % (AUTO) 8 % (0-12); NEUTROPHILS # (AUTO) 5.4 X 10^3 (1.8-7.8); NEUTROPHILS % (AUTO) 66 % (42-75); PLATELET COUNT 380 10^3/uL (130-400); RED CELL DISTRIBUTION WIDTH 16.4 % (10.0-14.5); WHITE BLOOD COUNT 8.2 10^3/uL (4.3-11.0)
[2019-10-07 13:20] LABS: ALANINE AMINOTRANSFERASE 12 U/L (0-55); ALKALINE PHOSPHATASE 94 U/L (40-136); BILIRUBIN,TOTAL 0.4 MG/DL (0.1-1.0); BUN/CREATININE RATIO 19; CALCIUM 8.9 MG/DL (8.5-10.1); CARBON DIOXIDE 20 MMOL/L (21-32); CHLORIDE 109 MMOL/L (98-107); CHOLESTEROL 195 MG/DL (< 200); CREATININE SERUM 0.89 MG/DL (0.60-1.30); GFR ESTIMATED > 60; GLUCOSE 115 MG/DL (70-105); HDL CHOLESTEROL 55 MG/DL (40-60); MAGNESIUM 1.8 MG/DL (1.6-2.4); POTASSIUM 3.3 MMOL/L (3.6-5.0); SODIUM 139 MMOL/L (135-145); TOTAL PROTEIN 7.5 GM/DL (6.4-8.2); TRIGLYCERIDES 119 MG/DL (<150); TSH (THYROID ANALYZER) 5.56 UIU/ML (0.35-4.94); VLDL CHOLESTEROL 24 MG/DL (5-40)
[2019-10-07 14:03] LABS: FREE T4 (FREE THYROXINE) 0.96 NG/DL (0.70-1.48)
== END ==
LOC: LAB 11:16
PROVIDERS: ATTEND Nurse Practitioner Family
DX: I10 Essential (primary) hypertension (principal); E78.5 Hyperlipidemia, unspecified; R51 Headache; R53.83 Other fatigue
CPT/HCPCS: 36415; 80053; 80061; 83735; 84439; 84443; 85025

== ENCOUNTER → 2019-11-17 | Outpatient (CLI) | payer MEDICARE, OTHER ==
[2019-11-17 13:46] LABS: BILIRUBIN,URINE NEGATIVE (NEGATIVE); CLARITY,URINE CLEAR; COLOR,URINE YELLOW; GLUCOSE, URINE (UA) NEGATIVE (NEGATIVE); KETONES,URINE NEGATIVE (NEGATIVE); LEUKOCYTE ESTERASE ,URINE NEGATIVE (NEGATIVE); NITRITE,URINE NEGATIVE (NEGATIVE); PROTEIN,URINE NEGATIVE (NEGATIVE)
[2019-11-17 13:48] LABS: BASOPHILS # (AUTO) 0.1 10^3/uL (0.0-0.1); BASOPHILS % (AUTO) 1 % (0-10); EOSINOPHILS # (AUTO) 0.2 10^3/uL (0.0-0.3); EOSINOPHILS % (AUTO) 2 % (0-10); HEMATOCRIT 38 % (35-52); HEMOGLOBIN 11.9 g/dL (11.5-16.0); LYMPHOCYTES # (AUTO) 2.6 10^3/uL (1.0-4.0); LYMPHOCYTES % (AUTO) 33 % (12-44); MEAN CORPUSCULAR HEMOGLOBIN 26 pg (25-34); MEAN CORPUSCULAR HGB CONC 31 g/dL (32-36); MEAN CORPUSCULAR VOLUME 82 fL (80-99); MONOCYTES # (AUTO) 0.5 10^3/uL (0.0-1.0); MONOCYTES % (AUTO) 7 % (0-12); NEUTROPHILS # (AUTO) 4.5 10^3/uL (1.8-7.8); NEUTROPHILS % (AUTO) 57 % (42-75); PLATELET COUNT 414 10^3/uL (130-400); WHITE BLOOD COUNT 7.9 10^3/uL (4.3-11.0)
[2019-11-17 14:02] LABS: BACTERIA,URINE FEW /HPF; HYALINE CASTS, URINE >50 /LPF
[2019-11-17 14:13] LABS: ALBUMIN 4.1 GM/DL (3.2-4.5); CREATININE SERUM 1.26 MG/DL (0.60-1.30); MAGNESIUM 1.8 MG/DL (1.6-2.4); PHOSPHORUS 3.9 MG/DL (2.3-4.7); POTASSIUM 3.8 MMOL/L (3.6-5.0); URIC ACID 5.9 MG/DL (2.6-7.2)
== END ==
LOC: LAB 13:05
PROVIDERS: ATTEND Internal Medicine Nephrology
DX: I12.9 Hypertensive chronic kidney disease with stage 1 through stage 4 chronic kidney disease, or unspecified chronic kidney disease (principal); N18.2 Chronic kidney disease, stage 2 (mild); D63.1 Anemia in chronic kidney disease
CPT/HCPCS: 36415; 80069; 81000; 82306; 82570; 83735; 83970; 84156; 84550; 85025

== ENCOUNTER → 2020-01-10 | Outpatient (CLI) | payer MEDICARE ==
[2020-01-10 14:10] LABS: FREE T4 (FREE THYROXINE) 1.08 NG/DL (0.70-1.48)
--- NOTE | 2020-01-10 14:26 | Diagnostic Imaging Report ---
PROCEDURE: US Thyroid. TECHNIQUE: Multiple real-time grayscale images were obtained of the thyroid in various projections. INDICATION: Hypothyroidism. The right thyroid lobe measured 4.1 x 1.3 x 1.4 cm. It contains a tiny subcentimeter nodule hypoechoic in its upper pole with a central calcification measuring 8 mm maximal as a benign appearing finding. The isthmus is normal 2 mm in AP thickness. The left thyroid lobe is 3.7 x 1.0 x 0.9 cm and was nonfocal. Both lobes of parathyroid showed a normal homogenous echotexture pattern with normal color Doppler blood flow. IMPRESSION: Subcentimeter 8 mm right lobe TI-RADS 3 lesion. Given its size requires no further workup and is presumed benign. Thyroid otherwise normal. Dictated by: Dictated on workstation # [id number]
--- NOTE | 2020-01-10 14:31 | Diagnostic Imaging Report ---
INDICATION: Screening. The current study was also evaluated with a Computer Aided Detection (CAD) system. 3-D Tomographic imaging was also performed. Comparison made with prior examination from 03/17/2018 and 04/29/2016 FINDINGS: There are scattered fibroglandular densities. There are a few benign-type calcifications There is no dominant mass, spiculated lesions or suspicious calcifications identified. Skin, nipples and axilla are unremarkable IMPRESSION: Category 2 benign ACR BI-RADS Category 2: Benign findings. Result letter will be mailed to the patient. Note: At least 10% of breast cancer is not imaged by mammography. Dictated by: Dictated on workstation # [id number]
== END ==
LOC: RAD 12:35
PROVIDERS: ATTEND Nurse Practitioner Family
DX: Z12.31 Encounter for screening mammogram for malignant neoplasm of breast (principal); E03.8 Other specified hypothyroidism; E04.1 Nontoxic single thyroid nodule
CPT/HCPCS: 36415; 76536; 77063; 77067; 84439; 84443; 84480; 86376

== ENCOUNTER → 2020-04-12 | Outpatient (CLI) | payer MEDICARE ==
[2020-04-12 11:59] LABS: BASOPHILS # (AUTO) 0.1 10^3/uL (0.0-0.1); BASOPHILS % (AUTO) 1 % (0-10); EOSINOPHILS # (AUTO) 0.2 10^3/uL (0.0-0.3); EOSINOPHILS % (AUTO) 2 % (0-10); HEMATOCRIT 35 % (35-52); HEMOGLOBIN 10.8 g/dL (11.5-16.0); LYMPHOCYTES # (AUTO) 2.5 10^3/uL (1.0-4.0); LYMPHOCYTES % (AUTO) 36 % (12-44); MEAN CORPUSCULAR HEMOGLOBIN 26 pg (25-34); MEAN CORPUSCULAR HGB CONC 31 g/dL (32-36); MEAN CORPUSCULAR VOLUME 84 fL (80-99); MEAN PLATELET VOLUME 9.2 fL (9.0-12.2); MONOCYTES # (AUTO) 0.6 10^3/uL (0.0-1.0); MONOCYTES % (AUTO) 8 % (0-12); NEUTROPHILS # (AUTO) 3.7 10^3/uL (1.8-7.8); NEUTROPHILS % (AUTO) 52 % (42-75); PLATELET COUNT 343 10^3/uL (130-400)
[2020-04-12 12:19] LABS: ALANINE AMINOTRANSFERASE 39 U/L (0-55); ALBUMIN 3.8 GM/DL (3.2-4.5); ALKALINE PHOSPHATASE 80 U/L (40-136); BILIRUBIN,TOTAL 0.3 MG/DL (0.1-1.0); BUN/CREATININE RATIO 20; CALCIUM 8.7 MG/DL (8.5-10.1); CARBON DIOXIDE 24 MMOL/L (21-32); CHLORIDE 109 MMOL/L (98-107); CREATININE SERUM 0.81 MG/DL (0.60-1.30); GFR ESTIMATED > 60; GLUCOSE 82 MG/DL (70-105); POTASSIUM 3.5 MMOL/L (3.6-5.0); SODIUM 141 MMOL/L (135-145); TOTAL PROTEIN 7.2 GM/DL (6.4-8.2)
== END ==
LOC: LAB 11:41
PROVIDERS: ATTEND Nurse Practitioner Family
DX: U07.1 COVID-19 (principal); E11.9 Type 2 diabetes mellitus without complications
CPT/HCPCS: 36415; 80053; 85025; 86141; 86769

== ENCOUNTER → 2020-05-17 | Outpatient (CLI) | payer MEDICARE ==
[2020-05-17 14:59] LABS: BASOPHILS # (AUTO) 0.1 10^3/uL (0.0-0.1); BASOPHILS % (AUTO) 1 % (0-10); EOSINOPHILS # (AUTO) 0.2 10^3/uL (0.0-0.3); EOSINOPHILS % (AUTO) 2 % (0-10); HEMATOCRIT 36 % (35-52); LYMPHOCYTES # (AUTO) 2.8 X 10^3 (1.0-4.0); LYMPHOCYTES % (AUTO) 39 % (12-44); MEAN CORPUSCULAR HEMOGLOBIN 26 pg (25-34); MEAN CORPUSCULAR HGB CONC 31 g/dL (32-36); MEAN CORPUSCULAR VOLUME 83 fL (80-99); MEAN PLATELET VOLUME 9.3 fL (9.0-12.2); MONOCYTES # (AUTO) 0.5 X 10^3 (0.0-1.0); MONOCYTES % (AUTO) 8 % (0-12); NEUTROPHILS # (AUTO) 3.7 X 10^3 (1.8-7.8); NEUTROPHILS % (AUTO) 51 % (42-75); PLATELET COUNT 409 10^3/uL (130-400); WHITE BLOOD COUNT 7.2 10^3/uL (4.3-11.0)
[2020-05-17 15:05] LABS: ALBUMIN 3.8 GM/DL (3.2-4.5)
[2020-05-17 15:06] LABS: CHLORIDE 109 MMOL/L (98-107); SODIUM 140 MMOL/L (135-145)
[2020-05-17 15:07] LABS: CALCIUM 8.5 MG/DL (8.5-10.1)
[2020-05-17 15:08] LABS: GLUCOSE 103 MG/DL (70-105)
[2020-05-17 15:09] LABS: CARBON DIOXIDE 20 MMOL/L (21-32)
[2020-05-17 15:11] LABS: CREATININE SERUM 0.79 MG/DL (0.60-1.30); GFR ESTIMATED > 60; PHOSPHORUS 4.7 MG/DL (2.3-4.7)
[2020-05-17 15:13] LABS: BUN/CREATININE RATIO 13
[2020-05-17 15:13] LABS: BILIRUBIN,URINE NEGATIVE (NEGATIVE); CLARITY,URINE CLEAR; COLOR,URINE YELLOW; GLUCOSE, URINE (UA) NEGATIVE (NEGATIVE); KETONES,URINE NEGATIVE (NEGATIVE); LEUKOCYTE ESTERASE ,URINE NEGATIVE (NEGATIVE); NITRITE,URINE NEGATIVE (NEGATIVE); PROTEIN,URINE NEGATIVE (NEGATIVE)
[2020-05-17 15:14] LABS: MAGNESIUM 2.1 MG/DL (1.6-2.4); URIC ACID 5.8 MG/DL (2.6-7.2)
[2020-05-17 15:25] LABS: ERYTHROCYTE SEDIMENTATION RATE 46 MM/HR (0-30)
[2020-05-17 15:28] LABS: BACTERIA,URINE LARGE /HPF
== END ==
LOC: LAB 14:08
PROVIDERS: ATTEND Internal Medicine Nephrology
DX: I12.9 Hypertensive chronic kidney disease with stage 1 through stage 4 chronic kidney disease, or unspecified chronic kidney disease (principal); E21.1 Secondary hyperparathyroidism, not elsewhere classified; R80.0 Isolated proteinuria; D63.1 Anemia in chronic kidney disease; N18.31 Chronic kidney disease, stage 3a
CPT/HCPCS: 36415; 80069; 81000; 82306; 82570; 83520; 83735; 83970; 84156; 84550; 85025; 85652; 86021; 86141; 86235; 86256; 86431; 87077; 87088; 87186

== ENCOUNTER → 2020-07-26 | Outpatient (CLI) | payer MEDICARE, OTHER ==
[2020-07-26 11:00] LABS: ALBUMIN 3.9 GM/DL (3.2-4.5); BILIRUBIN,TOTAL 0.5 MG/DL (0.1-1.0); CALCIUM 10.5 MG/DL (8.5-10.1); CREATININE SERUM 1.02 MG/DL (0.60-1.30); POTASSIUM 3.9 MMOL/L (3.6-5.0); TOTAL PROTEIN 7.7 GM/DL (6.4-8.2)
== END ==
LOC: LAB 10:11
PROVIDERS: ATTEND Internal Medicine Cardiovascular Disease
DX: E78.2 Mixed hyperlipidemia (principal)
CPT/HCPCS: 36415; 80053; 80061

== ENCOUNTER → 2020-10-25 | Outpatient (CLI) | payer MEDICARE, OTHER ==
[2020-10-25 11:01] LABS: ALBUMIN 3.9 GM/DL (3.2-4.5); BILIRUBIN,TOTAL 0.4 MG/DL (0.1-1.0); CALCIUM 9.3 MG/DL (8.5-10.1); CREATININE SERUM 0.82 MG/DL (0.60-1.30); POTASSIUM 4.1 MMOL/L (3.6-5.0); TOTAL PROTEIN 7.3 GM/DL (6.4-8.2)
[2020-10-25 11:22] LABS: FREE T4 (FREE THYROXINE) 0.96 NG/DL (0.70-1.48)
== END ==
LOC: LAB 10:21
PROVIDERS: ATTEND Nurse Practitioner Family
DX: E03.9 Hypothyroidism, unspecified (principal); R73.9 Hyperglycemia, unspecified; R60.9 Edema, unspecified
CPT/HCPCS: 36415; 80053; 84439; 84443; 84481

== ENCOUNTER → 2021-04-25 | Outpatient (CLI) | payer MEDICARE, OTHER ==
[2021-04-25 11:57] LABS: FREE T4 (FREE THYROXINE) 0.96 NG/DL (0.70-1.48)
== END ==
LOC: LAB 09:59
PROVIDERS: ATTEND Nurse Practitioner Family
DX: E78.49 Other hyperlipidemia (principal); E03.8 Other specified hypothyroidism; D51.3 Other dietary vitamin B12 deficiency anemia
CPT/HCPCS: 36415; 80061; 84439; 84443; 84480

== ENCOUNTER → 2021-04-25 | Outpatient (CLI) | payer MEDICARE, OTHER ==
[2021-04-25 10:56] LABS: BASOPHILS # (AUTO) 0.1 10^3/uL (0.0-0.1); BASOPHILS % (AUTO) 1 % (0-10); EOSINOPHILS # (AUTO) 0.2 10^3/uL (0.0-0.3); EOSINOPHILS % (AUTO) 2 % (0-10); HEMATOCRIT 38 % (35-52); HEMOGLOBIN 11.8 g/dL (11.5-16.0); LYMPHOCYTES # (AUTO) 2.2 10^3/uL (1.0-4.0); LYMPHOCYTES % (AUTO) 29 % (12-44); MEAN CORPUSCULAR HEMOGLOBIN 26 pg (25-34); MEAN CORPUSCULAR HGB CONC 31 g/dL (32-36); MEAN CORPUSCULAR VOLUME 83 fL (80-99); MEAN PLATELET VOLUME 9.4 fL (9.0-12.2); MONOCYTES # (AUTO) 0.5 10^3/uL (0.0-1.0); MONOCYTES % (AUTO) 6 % (0-12); NEUTROPHILS # (AUTO) 4.8 10^3/uL (1.8-7.8); NEUTROPHILS % (AUTO) 62 % (42-75); PLATELET COUNT 355 10^3/uL (130-400); WHITE BLOOD COUNT 7.7 10^3/uL (4.3-11.0)
[2021-04-25 11:16] LABS: BILIRUBIN,URINE NEGATIVE (NEGATIVE); CLARITY,URINE CLEAR; COLOR,URINE YELLOW; GLUCOSE, URINE (UA) NEGATIVE (NEGATIVE); KETONES,URINE NEGATIVE (NEGATIVE); LEUKOCYTE ESTERASE ,URINE 1+ (NEGATIVE); NITRITE,URINE POSITIVE (NEGATIVE); PROTEIN,URINE TRACE (NEGATIVE)
[2021-04-25 11:36] LABS: CALCIUM 8.9 MG/DL (8.5-10.1); CREATININE SERUM 0.81 MG/DL (0.60-1.30); PHOSPHORUS 3.5 MG/DL (2.3-4.7); POTASSIUM 3.8 MMOL/L (3.6-5.0); URIC ACID 6.1 MG/DL (2.6-7.2)
[2021-04-25 11:46] LABS: BACTERIA,URINE LARGE /HPF
== END ==
LOC: LAB 10:19
PROVIDERS: ATTEND Internal Medicine Nephrology
DX: E21.1 Secondary hyperparathyroidism, not elsewhere classified (principal); N18.31 Chronic kidney disease, stage 3a; R80.0 Isolated proteinuria
CPT/HCPCS: 36415; 80069; 81000; 82306; 82570; 83735; 83970; 84156; 84550; 85025; 86021; 87077; 87088

== ENCOUNTER → 2021-05-30 | Outpatient (CLI) | payer MEDICARE, OTHER ==
--- NOTE | 2021-05-30 16:16 | Diagnostic Imaging Report ---
INDICATION: Routine screening. Comparison is made with prior mammogram 01/10/2020 and 03/17/2018. 2-D and 3-D bilateral screening mammography was performed with CAD. Scattered fibroglandular densities are identified bilaterally. The parenchymal pattern appears to be stable. There are benign calcifications bilaterally. No spiculated mass or malignant-appearing microcalcifications are seen. Axillae are unremarkable. IMPRESSION: No mammographic features suspicious for malignancy are identified. ACR BI-RADS Category 2: Benign findings. Result letter will be mailed to the patient. Note: At least 10% of breast cancer is not imaged by mammography. BI-RADS Category 2 Dictated by: Dictated on workstation # [id number]
== END ==
LOC: RAD 14:45
PROVIDERS: ATTEND Nurse Practitioner Family
DX: Z12.31 Encounter for screening mammogram for malignant neoplasm of breast (principal)
CPT/HCPCS: 77063; 77067

== ENCOUNTER → 2021-10-24 | Outpatient (CLI) | payer MEDICARE, OTHER ==
[2021-10-24 09:44] LABS: BASOPHILS # (AUTO) 0.1 10^3/uL (0.0-0.1); BASOPHILS % (AUTO) 1 % (0-10); EOSINOPHILS # (AUTO) 0.3 10^3/uL (0.0-0.3); EOSINOPHILS % (AUTO) 5 % (0-10); HEMATOCRIT 37 % (35-52); HEMOGLOBIN 11.1 g/dL (11.5-16.0); LYMPHOCYTES # (AUTO) 1.7 10^3/uL (1.0-4.0); LYMPHOCYTES % (AUTO) 29 % (12-44); MEAN CORPUSCULAR HEMOGLOBIN 25 pg (25-34); MEAN CORPUSCULAR HGB CONC 30 g/dL (32-36); MEAN CORPUSCULAR VOLUME 81 fL (80-99); MEAN PLATELET VOLUME 9.5 fL (9.0-12.2); MONOCYTES # (AUTO) 0.4 10^3/uL (0.0-1.0); MONOCYTES % (AUTO) 7 % (0-12); NEUTROPHILS # (AUTO) 3.4 10^3/uL (1.8-7.8); NEUTROPHILS % (AUTO) 59 % (42-75); PLATELET COUNT 326 10^3/uL (130-400); WHITE BLOOD COUNT 5.8 10^3/uL (4.3-11.0)
[2021-10-24 09:49] LABS: BILIRUBIN,URINE NEGATIVE (NEGATIVE); CLARITY,URINE CLEAR; COLOR,URINE YELLOW; GLUCOSE, URINE (UA) NEGATIVE (NEGATIVE); KETONES,URINE NEGATIVE (NEGATIVE); LEUKOCYTE ESTERASE ,URINE 1+ (NEGATIVE); NITRITE,URINE POSITIVE (NEGATIVE); PROTEIN,URINE NEGATIVE (NEGATIVE)
[2021-10-24 10:04] LABS: ALBUMIN 3.8 GM/DL (3.2-4.5); CREATININE SERUM 0.78 MG/DL (0.60-1.30); PHOSPHORUS 3.7 MG/DL (2.3-4.7); POTASSIUM 3.7 MMOL/L (3.6-5.0); URIC ACID 4.9 MG/DL (2.6-7.2)
[2021-10-24 10:06] LABS: BACTERIA,URINE MODERATE /HPF; HYALINE CASTS, URINE RARE /LPF; RBC,URINE RARE /HPF; SQUAMOUS EPITHELIAL CELL,UR 0-2 /HPF
== END ==
LOC: LAB 09:21
PROVIDERS: ATTEND Internal Medicine Nephrology
DX: N18.31 Chronic kidney disease, stage 3a (principal); E87.6 Hypokalemia
CPT/HCPCS: 36415; 80069; 81000; 82570; 84156; 84550; 85025; 87077; 87088; 87186

== ENCOUNTER → 2021-11-07 | Outpatient (CLI) | payer MEDICARE, OTHER | LOC: LAB 12:16 | PROVIDERS: ATTEND Internal Medicine Nephrology | DX: I12.9 Hypertensive chronic kidney disease with stage 1 through stage 4 chronic kidney disease, or unspecified chronic kidney disease (principal); N18.2 Chronic kidney disease, stage 2 (mild); N30.00 Acute cystitis without hematuria | CPT/HCPCS: 36415; 85652; 86021; 86141 ==

== ENCOUNTER → 2021-11-07 | Outpatient (CLI) | payer MEDICARE, OTHER ==
[2021-11-07 13:23] LABS: MAGNESIUM 1.8 MG/DL (1.6-2.4)
[2021-11-07 13:45] LABS: FREE T4 (FREE THYROXINE) 0.92 NG/DL (0.70-1.48)
== END ==
LOC: LAB 12:20
PROVIDERS: ATTEND Nurse Practitioner Family
DX: E78.49 Other hyperlipidemia (principal); I10 Essential (primary) hypertension; E03.8 Other specified hypothyroidism; G25.81 Restless legs syndrome; R52 Pain, unspecified
CPT/HCPCS: 36415; 80061; 82607; 83036; 83735; 84439; 84443; 84480

== ENCOUNTER → 2022-05-01 | Outpatient (CLI) | payer MEDICARE, OTHER ==
[2022-05-01 11:27] LABS: BASOPHILS % (AUTO) 1 % (0-10); EOSINOPHILS # (AUTO) 0.2 10^3/uL (0.0-0.3); EOSINOPHILS % (AUTO) 3 % (0-10); HEMATOCRIT 37 % (35-52); HEMOGLOBIN 11.4 g/dL (11.5-16.0); LYMPHOCYTES # (AUTO) 2.1 10^3/uL (1.0-4.0); LYMPHOCYTES % (AUTO) 28 % (12-44); MEAN CORPUSCULAR HEMOGLOBIN 26 pg (25-34); MEAN CORPUSCULAR HGB CONC 31 g/dL (32-36); MEAN CORPUSCULAR VOLUME 82 fL (80-99); MEAN PLATELET VOLUME 9.3 fL (9.0-12.2); MONOCYTES # (AUTO) 0.5 10^3/uL (0.0-1.0); MONOCYTES % (AUTO) 7 % (0-12); NEUTROPHILS # (AUTO) 4.6 10^3/uL (1.8-7.8); NEUTROPHILS % (AUTO) 62 % (42-75); PLATELET COUNT 337 10^3/uL (130-400); WHITE BLOOD COUNT 7.5 10^3/uL (4.3-11.0)
[2022-05-01 11:48] LABS: BILIRUBIN,TOTAL 0.5 MG/DL (0.1-1.0); CALCIUM 9.1 MG/DL (8.5-10.1); CREATININE SERUM 0.82 MG/DL (0.60-1.30); MAGNESIUM 1.9 MG/DL (1.6-2.4); POTASSIUM 3.9 MMOL/L (3.6-5.0); TOTAL PROTEIN 7.4 GM/DL (6.4-8.2)
[2022-05-01 12:10] LABS: FREE T4 (FREE THYROXINE) 1.03 NG/DL (0.70-1.48)
== END ==
LOC: LAB 10:42
PROVIDERS: ATTEND Nurse Practitioner Family
DX: E11.22 Type 2 diabetes mellitus with diabetic chronic kidney disease (principal); I12.9 Hypertensive chronic kidney disease with stage 1 through stage 4 chronic kidney disease, or unspecified chronic kidney disease; N18.31 Chronic kidney disease, stage 3a; R53.82 Chronic fatigue, unspecified; G25.81 Restless legs syndrome; E87.6 Hypokalemia; E03.8 Other specified hypothyroidism; G44.219 Episodic tension-type headache, not intractable; R45.89 Other symptoms and signs involving emotional state
CPT/HCPCS: 36415; 80053; 80061; 82306; 82607; 83036; 83735; 84439; 84443; 84481; 85025

== ENCOUNTER → 2022-12-18 | Outpatient (CLI) | payer MEDICARE, OTHER ==
[~2022-12-18] MED LIST changes: +POTA-330 PO; -POTA-51 PO
[2022-12-18 11:22] LABS: BASOPHILS # (AUTO) 0.1 10^3/uL (0.0-0.1); BASOPHILS % (AUTO) 1 % (0-10); EOSINOPHILS # (AUTO) 0.1 10^3/uL (0.0-0.3); EOSINOPHILS % (AUTO) 2 % (0-10); HEMATOCRIT 41 % (35-52); HEMOGLOBIN 12.6 g/dL (11.5-16.0); LYMPHOCYTES # (AUTO) 2.2 10^3/uL (1.0-4.0); LYMPHOCYTES % (AUTO) 33 % (12-44); MEAN CORPUSCULAR HEMOGLOBIN 26 pg (25-34); MEAN CORPUSCULAR HGB CONC 31 g/dL (32-36); MEAN CORPUSCULAR VOLUME 86 fL (80-99); MEAN PLATELET VOLUME 9.6 fL (9.0-12.2); MONOCYTES # (AUTO) 0.4 10^3/uL (0.0-1.0); MONOCYTES % (AUTO) 6 % (0-12); NEUTROPHILS # (AUTO) 3.9 10^3/uL (1.8-7.8); NEUTROPHILS % (AUTO) 58 % (42-75); PLATELET COUNT 330 10^3/uL (130-400); WHITE BLOOD COUNT 6.8 10^3/uL (4.3-11.0)
[2022-12-18 11:35] LABS: ALBUMIN 4.2 GM/DL (3.2-4.5); POTASSIUM 3.9 MMOL/L (3.6-5.0)
[2022-12-18 11:36] LABS: CALCIUM 9.4 MG/DL (8.5-10.1)
[2022-12-18 11:38] LABS: TOTAL PROTEIN 7.7 GM/DL (6.4-8.2)
[2022-12-18 11:39] LABS: BILIRUBIN,TOTAL 0.6 MG/DL (0.1-1.0)
[2022-12-18 11:41] LABS: CREATININE SERUM 0.84 MG/DL (0.60-1.30)
[2022-12-18 11:44] LABS: MAGNESIUM 2.1 MG/DL (1.6-2.4)
[2022-12-18 12:06] LABS: FREE T4 (FREE THYROXINE) 1.18 NG/DL (0.70-1.48)
== END ==
LOC: LAB 10:57
PROVIDERS: ATTEND Nurse Practitioner Family
DX: Z12.73 Encounter for screening for malignant neoplasm of ovary (principal); E11.9 Type 2 diabetes mellitus without complications; G43.709 Chronic migraine without aura, not intractable, without status migrainosus; E87.6 Hypokalemia; E03.8 Other specified hypothyroidism; E21.1 Secondary hyperparathyroidism, not elsewhere classified; G25.81 Restless legs syndrome; I10 Essential (primary) hypertension
CPT/HCPCS: 36415; 80053; 80061; 82607; 83036; 83735; 84439; 84443; 84481; 85025; 86301